=== PATIENT | male | born 1945 | race Caucasian/White ===

== ENCOUNTER → 2017-09-12 | Outpatient (CLI) | payer MEDICARE, OTHER ==
--- NOTE | 2017-09-12 11:37 | US ---
EXAMINATION TYPE: US scrotum with doppler. Grayscale and color Doppler Duplex imaging performed of yuko sifuentes scrotum. DATE OF EXAM: 09/12/2017 COMPARISON: NONE CLINICAL HISTORY: N50.819 Testicular pain. On going testicular pain x 6 months EXAM MEASUREMENTS: TESTICLES: Right Testicle: 3.2 x 1.9 x 2.6 cm Left Testicle: 2.9 x 1.6 x 1.9 cm EPIDIDYMIS HEAD: Right Epididymis: 1.1 x 0.8 x 1.7 cm Left Epididymis: 1.1 x 0.9 x 1.7 cm Doppler performed to assess for testicular vascularity; good bilateral arterial flow is seen. Unable to obtain bilateral venous flow. Presence of hydroceles: no Presence of varicoceles: no Bilateral epididymal cysts with largest on right = 0.8cm and largest on left = 0.9cm A slightly lobulated 8 mm thin-walled cyst in right epididymis is identified. There is oval 9 mm simp le appearing thin-walled cyst in the left epididymis identified. Both testicles are heterogeneous. Co mparison view shows symmetric blood flow bilaterally. No concerning scrotal fluid collections are pre sent. IMPRESSION: No suspicious increased or diminished blood flow to either testicle identified.
== END | disposition home or self-care (01) ==
LOC: RADUSWWP 10:35
PROVIDERS: ATTEND Internal Medicine
DX: N50.819 Testicular pain, unspecified (principal)
CPT/HCPCS: 76870; 93975

== ENCOUNTER 2017-10-11 16:30 | Inpatient (IN) | payer MEDICARE, OTHER ==
[2017-10-11] MEDS ORDERED: SODIUM CHLORIDE 0.9% 1,000 ML IV STA (17:43)
[2017-10-11] MEDS ORDERED: IPRATROPIUM-ALBUTEROL 3 ML NEB INHALATION STA (17:43)
--- NOTE | 2017-10-11 17:49 | ED ---
General Adult HPI - General Chief complaint: Dizziness Stated complaint: Lightheaded/sob Time Seen by Provider: 10/11/17 17:26 Source: patient, family, RN notes reviewed Mode of arrival: wheelchair Limitations: no limitations - History of Present Illness Initial comments: Patient is a pleasant 72-year-old male presenting to the emergency department with complaints of lightheadedness and dyspnea. Patient states these are chronic complaints over the past several months. Patient states symptoms seem to be getting worse and he is not functioning well at home. Patient states symptoms greatly worsen with upright position and exertion. Patient states at times he is only able to walk a few feet. No chest pain. Patient is a former smoker however has difficulty time stating how much. Patient has been seen by primary care physician as well as specialist for this. Patient does have some leg swelling however this is chronic. Patient is having some mild discomfort behind his left leg. - Related Data Home Medications Medication Instructions Recorded Confirmed ALPRAZolam [ALPRAZolam XR] 0.5 mg PO BID 12/08/14 10/11/17 Ammonium Lactate Cream [Ammonium 1 applic TOPICAL BID 12/08/14 10/11/17 Lactate] Aspirin 81 mg PO DAILY 12/08/14 10/11/17 Atorvastatin [Lipitor] 20 mg PO HS 12/08/14 10/11/17 Calcium Carbonate/Vitamin D3 1 tab PO DAILY 12/08/14 10/11/17 [Calcium 600 + Vit D Tablet] Digoxin [Lanoxin] 125 mcg PO DAILY 12/08/14 10/11/17 EPINEPHrine (Auto Inject) [Epipen] 0.3 mg IM ONCE PRN 12/08/14 10/11/17 Finacea 1 applicate TOPICAL DAILY 12/08/14 10/11/17 Flecainide Acetate [Tambocor] 100 mg PO Q12HR 12/08/14 10/11/17 Fluocinonide 30 gm TOPICAL DAILY 12/08/14 10/11/17 Ibuprofen [Motrin] 600 mg PO Q8HR PRN 12/08/14 10/11/17 Lisinopril [Prinivil] 10 mg PO HS 12/08/14 10/11/17 Metoprolol Tartrate [Lopressor] 50 mg PO BID 12/08/14 10/11/17 Multivitamins, Thera [Theragran] 1 each PO DAILY@1200 12/08/14 10/11/17 Rivaroxaban [Xarelto] 20 mg PO HS 12/08/14 10/11/17 cycloSPORINE [Restasis] 1 applicator BOTH EYES BID 12/08/14 10/11/17 metFORMIN HCL 1,000 mg PO DAILY 12/08/14 10/11/17 Furosemide [Lasix] 20 mg PO DAILY 10/11/17 10/11/17 Ketoconazole 2% Shampoo [Nizoral] 1 applic TOPICAL DAILY 10/11/17 10/11/17 Allergies Allergy/AdvReac Type Severity Reaction Status Date / Time venom-honey bee Allergy Anaphylaxis Verified 10/11/17 17:49 [bee venom (honey bee)] Review of Systems ROS Statement: Those systems with pertinent positive or pertinent negative responses have been documented in the HPI. ROS Other: All systems not noted in ROS Statement are negative. Constitutional: Denies: fever Eyes: Denies: eye pain ENT: Denies: ear pain Respiratory: Reports: dyspnea. Denies: cough Cardiovascular: Denies: chest pain Endocrine: Reports: fatigue Gastrointestinal: Denies: vomiting Genitourinary: Denies: dysuria Musculoskeletal: Reports: back pain (Chronic and unchanged) Skin: Denies: rash Neurological: Denies: headache Psychiatric: Denies: anxiety Past Medical History Past Medical History: Atrial Fibrillation, Diabetes Mellitus, Hypertension Additional Past Medical History / Comment(s): hemorrhoids,polyps,rosacea- rhinophyna, dermatitis,prosthesis lt eye History of Any Multi-Drug Resistant Organisms: None Reported Past Surgical History: Orthopedic Surgery, Pacemaker Additional Past Surgical History / Comment(s): lt eye surgery , L knee Past Anesthesia/Blood Transfusion Reactions: No Reported Reaction Type of Cardiac Device: Permanent Pacemaker Device Placement Date:: Dec Past Psychological History: Anxiety Smoking Status: Former smoker Past Alcohol Use History: None Reported Past Drug Use History: None Reported - Past Family History Brother(s) Family Medical History: AFIB, Cancer, Diabetes Mellitus, Myocardial Infarction ( [place]) Additional Family Medical History / Comment(s): esophageal ca, liver ca, prostate ca,sleep apnea Father Family Medical History: CVA/TIA Additional Family Medical History / Comment(s): at age 88 Mother Family Medical History: Cancer Additional Family Medical History / Comment(s): lung at age 73 Sister(s) Family Medical History: Cancer, Diabetes Mellitus Additional Family Medical History / Comment(s): breast General Exam Limitations: no limitations General appearance: alert, in no apparent distress Head exam: Present: atraumatic Eye exam: Present: other (Prosthetic left eye) ENT exam: Present: normal oropharynx Neck exam: Present: normal inspection Respiratory exam: Present: normal lung sounds bilaterally Cardiovascular Exam: Present: regular rate, normal rhythm GI/Abdominal exam: Present: soft. Absent: tenderness Extremities exam: Present: pedal edema. Absent: calf tenderness Neurological exam: Present: alert. Absent: motor sensory deficit Psychiatric exam: Present: normal affect, normal mood Skin exam: Present: normal color Course Vital Signs 10/11/17 10/11/17 10/11/17 16:36 17:43 18:11 Temperature 97.9 F Pulse Rate 59 L 85 56 L Respiratory 16 16 Rate Blood Pressure 92/64 102/50 O2 Sat by Pulse 100 98 Oximetry 10/11/17 10/11/17 18:21 19:37 Temperature 97.3 F L Pulse Rate 60 67 Respiratory 16 Rate Blood Pressure 90/42 O2 Sat by Pulse 95 Oximetry EKG Findings - EKG Comments: EKG Findings:: Undetermined rhythm at 57. Suspected sinus rhythm. QRS 140. QT 410. QTc 399. Normal axis. Nonspecific intraventricular block. No acute ST change. Medical Decision Making - Medical Decision Making Patient reevaluated and updated. Patient given blood transfusion secondary to symptomatic anemia. Case was discussed in detail with practitioner Dipti, who will admit for Dr. Chacko, covering for Dr. Paredes. GI will be consult. - Lab Data Result diagrams: 10/11/17 17:05 10/11/17 17:05 Lab Results 10/11/17 10/11/17 10/11/17 Range/Units 17:05 17:05 17:05 WBC 6.4 (3.8-10.6) k/uL RBC 1.70 L (4.30-5.90) m/uL Hgb 5.4 L* (13.0-17.5) gm/dL Hct 17.4 L* (39.0-53.0) % MCV 102.4 H (80.0-100.0) fL MCH 31.8 (25.0-35.0) pg MCHC 31.0 (31.0-37.0) g/dL RDW 18.1 H (11.5-15.5) % Plt Count 295 (150-450) k/uL Neutrophils % 74 % Lymphocytes % 15 % Monocytes % 7 % Eosinophils % 2 % Basophils % 1 % Neutrophils # 4.7 (1.3-7.7) k/uL Lymphocytes # 0.9 L (1.0-4.8) k/uL Monocytes # 0.5 (0-1.0) k/uL Eosinophils # 0.1 (0-0.7) k/uL Basophils # 0.0 (0-0.2) k/uL Polychromasia Present Hypochromasia Moderate Poikilocytosis Slight Basophilic Stippling Present Anisocytosis Slight Macrocytosis Moderate PT (9.0-12.0) sec INR (<1.2) APTT (22.0-30.0) sec D-Dimer (<0.60) mg/L FEU Sodium 140 (137-145) mmol/L Potassium 5.2 H (3.5-5.1) mmol/L Chloride 107 (98-107) mmol/L Carbon Dioxide 18 L (22-30) mmol/L Anion Gap 15 mmol/L BUN 57 H (9-20) mg/dL Creatinine 1.60 H (0.66-1.25) mg/dL Est GFR (CKD-EPI)AfAm 49 (>60 ml/min/1.73 sqM) Est GFR (CKD-EPI)NonAf 43 (>60 ml/min/1.73 sqM) Glucose 112 H (74-99) mg/dL Calcium 9.0 (8.4-10.2) mg/dL Magnesium 2.0 (1.6-2.3) mg/dL Total Bilirubin 0.2 (0.2-1.3) mg/dL AST 26 (17-59) U/L ALT 39 (21-72) U/L Alkaline Phosphatase 38 (38-126) U/L Total Creatine Kinase 84 (55-170) U/L CK-MB (CK-2) 1.0 (0.0-2.4) ng/mL CK-MB (CK-2) Rel Index 1.2 Troponin I <0.012 (0.000-0.034) ng/mL NT-Pro-B Natriuret Pep pg/mL Total Protein 5.7 L (6.3-8.2) g/dL Albumin 3.6 (3.5-5.0) g/dL Stool Occult Blood (Negative) Blood Type Blood Type Confirm Blood Type Recheck Antibody Screen Crossmatch Spec Expiration Date 10/11/17 10/11/17 10/11/17 Range/Units 17:05 17:05 18:41 WBC (3.8-10.6) k/uL RBC (4.30-5.90) m/uL Hgb (13.0-17.5) gm/dL Hct (39.0-53.0) % MCV (80.0-100.0) fL MCH (25.0-35.0) pg MCHC (31.0-37.0) g/dL RDW (11.5-15.5) % Plt Count (150-450) k/uL Neutrophils % % Lymphocytes % % Monocytes % % Eosinophils % % Basophils % % Neutrophils # (1.3-7.7) k/uL Lymphocytes # (1.0-4.8) k/uL Monocytes # (0-1.0) k/uL Eosinophils # (0-0.7) k/uL Basophils # (0-0.2) k/uL Polychromasia Hypochromasia Poikilocytosis Basophilic Stippling Anisocytosis Macrocytosis PT 12.2 H (9.0-12.0) sec INR 1.3 H (<1.2) APTT 22.2 (22.0-30.0) sec D-Dimer <0.17 (<0.60) mg/L FEU Sodium (137-145) mmol/L Potassium (3.5-5.1) mmol/L Chloride (98-107) mmol/L Carbon Dioxide (22-30) mmol/L Anion Gap mmol/L BUN (9-20) mg/dL Creatinine (0.66-1.25) mg/dL Est GFR (CKD-EPI)AfAm (>60 ml/min/1.73 sqM) Est GFR (CKD-EPI)NonAf (>60 ml/min/1.73 sqM) Glucose (74-99) mg/dL Calcium (8.4-10.2) mg/dL Magnesium (1.6-2.3) mg/dL Total Bilirubin (0.2-1.3) mg/dL AST (17-59) U/L ALT (21-72) U/L Alkaline Phosphatase (38-126) U/L Total Creatine Kinase (55-170) U/L CK-MB (CK-2) (0.0-2.4) ng/mL CK-MB (CK-2) Rel Index Troponin I (0.000-0.034) ng/mL NT-Pro-B Natriuret Pep 271 pg/mL Total Protein (6.3-8.2) g/dL Albumin (3.5-5.0) g/dL Stool Occult Blood (Negative) Blood Type A Positive Blood Type Confirm Blood Type Recheck CABO Indicated Antibody Screen NEGATIVE Crossmatch See Detail Spec Expiration Date 10/14/2017 - 234010/11/17 10/11/17 Range/Units 18:52 18:53 WBC (3.8-10.6) k/uL RBC (4.30-5.90) m/uL Hgb (13.0-17.5) gm/dL Hct (39.0-53.0) % MCV (80.0-100.0) fL MCH (25.0-35.0) pg MCHC (31.0-37.0) g/dL RDW (11.5-15.5) % Plt Count (150-450) k/uL Neutrophils % % Lymphocytes % % Monocytes % % Eosinophils % % Basophils % % Neutrophils # (1.3-7.7) k/uL Lymphocytes # (1.0-4.8) k/uL Monocytes # (0-1.0) k/uL Eosinophils # (0-0.7) k/uL Basophils # (0-0.2) k/uL Polychromasia Hypochromasia Poikilocytosis Basophilic Stippling Anisocytosis Macrocytosis PT (9.0-12.0) sec INR (<1.2) APTT (22.0-30.0) sec D-Dimer (<0.60) mg/L FEU Sodium (137-145) mmol/L Potassium (3.5-5.1) mmol/L Chloride (98-107) mmol/L Carbon Dioxide (22-30) mmol/L Anion Gap mmol/L BUN (9-20) mg/dL Creatinine (0.66-1.25) mg/dL Est GFR (CKD-EPI)AfAm (>60 ml/min/1.73 sqM) Est GFR (CKD-EPI)NonAf (>60 ml/min/1.73 sqM) Glucose (74-99) mg/dL Calcium (8.4-10.2) mg/dL Magnesium (1.6-2.3) mg/dL Total Bilirubin (0.2-1.3) mg/dL AST (17-59) U/L ALT (21-72) U/L Alkaline Phosphatase (38-126) U/L Total Creatine Kinase (55-170) U/L CK-MB (CK-2) (0.0-2.4) ng/mL CK-MB (CK-2) Rel Index Troponin I (0.000-0.034) ng/mL NT-Pro-B Natriuret Pep pg/mL Total Protein (6.3-8.2) g/dL Albumin (3.5-5.0) g/dL Stool Occult Blood Positive (Negative) Blood Type Blood Type Confirm A Positive Blood Type Recheck Antibody Screen Crossmatch Spec Expiration Date - Radiology Data Radiology results: report reviewed (Ultrasound left leg negative for DVT.), image reviewed (Chest x-ray shows no acute process.) Critical Care Time Critical Care Time: Yes Total Critical Care Time: 33 Disposition Clinical Impression: GI hemorrhage Disposition: ADMITTED IP TO THIS [facility] Condition: Serious Referrals: Nicole Paredes MD [Primary Care Provider] - 1-2 days Decision Time: 19:48
[2017-10-11 18:08] LABS: Anisocytosis Slight; Basophils % (A) 1 %; Eosinophils # (A) 0.1 k/uL (0-0.7); Eosinophils % (A) 2 %; Hypochromasia Moderate; Lymphocytes # (A) 0.9 k/uL (1.0-4.8); Lymphocytes % (A) 15 %; MCH 31.8 pg (25.0-35.0); MCV 102.4 fL (80.0-100.0); Macrocytosis Moderate; Mean Platelet Volume 6.7; Monocytes # (A) 0.5 k/uL (0-1.0); Monocytes % (A) 7 %; Neutrophils # (A) 4.7 k/uL (1.3-7.7); Neutrophils % (A) 74 %; Platelet Count 295 k/uL (150-450); Poikilocytosis Slight; RDW 18.1 % (11.5-15.5); WBC 6.4 k/uL (3.8-10.6)
[2017-10-11 18:10] LABS: HCT 17.4 % (39.0-53.0); HGB 5.4 gm/dL (13.0-17.5)
[2017-10-11 18:13] LABS: Albumin 3.6 g/dL (3.5-5.0); Potassium 5.2 mmol/L (3.5-5.1); Total Bilirubin 0.2 mg/dL (0.2-1.3); Total Protein 5.7 g/dL (6.3-8.2)
[2017-10-11 18:17] LABS: D-Dimer <0.17 mg/L FEU (<0.60); INR 1.3 (<1.2); Partial Thromboplastin Time 22.2 sec (22.0-30.0); Prothrombin Time 12.2 sec (9.0-12.0)
[2017-10-11 18:24] LABS: Creatine Kinase 84 U/L (55-170)
[2017-10-11 18:33] LABS: Basophilic Stippling Present; Polychromasia Present
[2017-10-11 18:36] LABS: Troponin I <0.012 ng/mL (0.000-0.034)
--- NOTE | 2017-10-11 18:41 | XR ---
EXAMINATION TYPE: XR chest 2V DATE OF EXAM: 10/11/2017 COMPARISON: 01/06/12 HISTORY: Shortness of breath TECHNIQUE: Frontal and lateral views of the chest are obtained. FINDINGS: Scattered senescent parenchymal changes noted. Hyperinflation compatible with COPD. No evidence for infiltrate. No evidence for atelectasis. Heart size is stable. Mediastinal structures are stable and grossly unremarkable. No evidence for hilar prominence. Degenerative changes dorsal spine. IMPRESSION: 1. No evidence for acute pulmonary disease.
--- NOTE | 2017-10-11 19:13 | US ---
EXAMINATION TYPE: US venous doppler duplex LE LT DATE OF EXAM: 10/11/2017 5:45 PM COMPARISON: NONE CLINICAL HISTORY: Pain. Left leg pain, difficulty walking, patient on blood thinners SIDE PERFORMED: Left TECHNIQUE: The lower extremity deep venous system is examined utilizing real time linear array sonog rey with graded compression, doppler sonography and color-flow sonography. VESSELS IMAGED: External Iliac Vein (EIV) Common Femoral Vein Deep Femoral Vein Greater Saphenous Vein * Femoral Vein Popliteal Vein Small Saphenous Vein * Proximal Calf Veins (* superficial vessels) Difficult study due to patient body habitus Grayscale, color doppler, spectral doppler imaging performed of the deep veins of the lower extremity . There is normal flow, compressibility, vascular waveforms. Left Leg: Appears negative for DVT IMPRESSION: No evidence for left lower extremity DVT at this time.
[2017-10-11] MEDS ORDERED: NALOXONE 0.4 MG/ML 1 ML VIAL IV PRN (19:48)
[2017-10-11] MEDS ORDERED: EPINEPHrine (PF) 1 MG/ML AMP IM PRN (21:03)
[2017-10-11 21:13] VITALS: BMI 47.9
[2017-10-11 21:28] LABS: Glucose,Whole Blood 105 mg/dL (75-99)
[2017-10-11] MEDS: METOPROLOL TARTRATE 50 MG TAB PO SCH (21:57)
[2017-10-11] MEDS: PANTOPRAZOLE 40 MG/10 ML VIAL IV SCH (22:38)
[2017-10-11] MEDS: SODIUM CHLORIDE 0.9% 1,000 ML IV SCH (23:12)
[2017-10-12 02:08] LABS: Anisocytosis Moderate; Basophils % (A) 1 %; Eosinophils # (A) 0.1 k/uL (0-0.7); Eosinophils % (A) 2 %; HCT 21.2 % (39.0-53.0); Hypochromasia Moderate; Lymphocytes # (A) 0.8 k/uL (1.0-4.8); Lymphocytes % (A) 14 %; MCH 29.4 pg (25.0-35.0); MCHC 30.7 g/dL (31.0-37.0); Macrocytosis Slight; Mean Platelet Volume 6.4; Monocytes # (A) 0.3 k/uL (0-1.0); Monocytes % (A) 6 %; Neutrophils # (A) 4.6 k/uL (1.3-7.7); Neutrophils % (A) 77 %; Platelet Count 236 k/uL (150-450); Poikilocytosis Slight; RBC 2.22 m/uL (4.30-5.90); RDW 22.8 % (11.5-15.5)
[2017-10-12 02:13] LABS: HGB 6.5 gm/dL (13.0-17.5)
[2017-10-12 02:14] LABS: MCV 95.7 fL (80.0-100.0)
[2017-10-12] MEDS: SODIUM CHLORIDE 0.9% 1,000 ML IV SCH ×3 (02:35→18:01)
[2017-10-12 04:33] LABS: Appearance,Urine Clear (Clear); Bilirubin,Urine Negative (Negative); Blood,Urine Negative (Negative); Color,Urine Light Yellow; Glucose,Urine (UA) Negative (Negative); Ketones,Urine Negative (Negative); Leukocyte Esterase,Urine Negative (Negative); Nitrite,Urine Negative (Negative); PH, Urine 5.5 (5.0-8.0); Protein,Urine Negative (Negative); Specific Gravity,Urine 1.014 (1.001-1.035); Urobilinogen,Urine <2.0 mg/dL (<2.0)
[2017-10-12 06:07] LABS: Glucose,Whole Blood 113 mg/dL (75-99)
[2017-10-12] MEDS: INSULIN ASPART 100 UNIT/ML 1 ML 10 ML VIAL SQ SCH ×3 (06:07→17:24)
[2017-10-12 06:34] LABS: Calcium 8.6 mg/dL (8.4-10.2); Potassium 5.6 mmol/L (3.5-5.1)
[2017-10-12 06:35] LABS: Anisocytosis Moderate; Basophils % (A) 1 %; Eosinophils # (A) 0.1 k/uL (0-0.7); Eosinophils % (A) 2 %; Hypochromasia Moderate; Lymphocytes % (A) 17 %; MCH 29.5 pg (25.0-35.0); MCHC 31.5 g/dL (31.0-37.0); MCV 93.5 fL (80.0-100.0); Macrocytosis Slight; Mean Platelet Volume 6.4; Monocytes # (A) 0.4 k/uL (0-1.0); Monocytes % (A) 7 %; Neutrophils # (A) 4.2 k/uL (1.3-7.7); Neutrophils % (A) 73 %; Platelet Count 231 k/uL (150-450); Poikilocytosis Moderate; RBC 2.12 m/uL (4.30-5.90); WBC 5.7 k/uL (3.8-10.6)
[2017-10-12 06:38] LABS: HCT 19.8 % (39.0-53.0); HGB 6.2 gm/dL (13.0-17.5)
[2017-10-12] MEDS: KETOCONAZOLE 2% SHAMPOO 1 APPLIC/ML TOPICAL SCH (08:33)
[2017-10-12] MEDS: cycloSPORINE 0.05% OPHTH 0.4 ML DROPERETTE BOTH EYES SCH ×2 (08:43→22:25)
[2017-10-12] MEDS: AMMONIUM LACTATE 12% CREAM 140 GM TUBE TOPICAL SCH ×2 (08:43→22:24)
[2017-10-12] MEDS: BETAMETHASONE DIPROPIONATE 0.05% CREAM 15 GM TUBE TOPICAL SCH (08:44)
[2017-10-12] MEDS ORDERED: SODIUM POLYSTYRENE SULFONATE 15 GM/60 ML BOTTLE PO STA (09:01)
--- NOTE | 2017-10-12 09:58 | P.CONS ---
History of Present Illness - Reason for Consult Consult date: 10/12/17 GI bleeding Requesting physician: Marc Stone - History of Present Illness 72-year-old male history of anemia, A. fib maintained on XARELTO, diabetes, hypertension, admitted with lightheadedness shortness of breath especially with exertion for several months as well as left lower leg pain. Lower extremity venous Doppler negative for DVT. Consult requested for GI bleed. Last dose of XARELTO 10/11/17. Denies overt bleeding hematemesis hematochezia melena. Denies abdominal pain. No weight loss. No excessive usage of aspirin or NSAIDs. No alcohol. Admission hemoglobin 5.4 presently 6.2. MCV 93-102. Platelet 231. INR 1.3. BUN 57. Creatinine 1.6. Stool occult blood positive. He has received 2 units of blood and scheduled received 2 more. EGD colonoscopy November 2014 for evaluation of epigastric pain change in bowel habits and intermittent lower abdominal pain mild iron deficiency anemia; EGD findings mild gastritis LA grade B reflux esophagitis. Colonoscopy 1 cm cecal polypectomy and 2 cm flat polyp with central depression in the ascending colon just proximal to the ileocecal valve status post submucosal injection partial piecemeal snare polypectomy and hot biopsy. Ascending colon polypectomy 4. Colon biopsies fragments of adenoma. Review of Systems Constitutional: Denies fever, chills, sweats, weight gain, or loss. HEENT: Negative for migraines, blurred vision or loss, earaches, drainage, tinnitus, oral mucosal lesions, dysphagia, or odynophagia. Cardiac: Negative for chest pain, arrhythmias, or palpitation. Respiratory: Admitted with shortness of breath, denies hemoptysis, cough, or sputum production. Gastrointestinal: See HPI for pertinent findings. Genitourinary: Negative for hematuria, urgency, frequency, polyuria, dysuria, or penile discharge. Musculoskeletal: Negative for muscle aches, swelling, arthritis, and arthralgias. Neurologic: Negative for stroke or TIA. Endocrine: Negative for thyroid problems. Skin: Negative for rash or itching. Psychiatric: Negative history for depression and anxiety Past Medical History Past Medical History: Atrial Fibrillation, Diabetes Mellitus, Hypertension Additional Past Medical History / Comment(s): hemorrhoids,polyps,rosacea- rhinophyna, dermatitis,prosthesis lt eye History of Any Multi-Drug Resistant Organisms: None Reported Past Surgical History: Orthopedic Surgery, Pacemaker Additional Past Surgical History / Comment(s): lt eye surgery , L knee Past Anesthesia/Blood Transfusion Reactions: No Reported Reaction Type of Cardiac Device: Permanent Pacemaker Device Placement Date:: Dec Past Psychological History: Anxiety Smoking Status: Former smoker Past Alcohol Use History: None Reported Additional Past Alcohol Use History / Comment(s): quit smoking 2007,on and off since age 23 Past Drug Use History: None Reported - Past Family History Brother(s) Family Medical History: AFIB, Cancer, Diabetes Mellitus, Myocardial Infarction ( [place]) Additional Family Medical History / Comment(s): esophageal ca, liver ca, prostate ca,sleep apnea Father Family Medical History: CVA/TIA Additional Family Medical History / Comment(s): at age 88 Mother Family Medical History: Cancer Additional Family Medical History / Comment(s): lung at age 73 Sister(s) Family Medical History: Cancer, Diabetes Mellitus Additional Family Medical History / Comment(s): breast Medications and Allergies Home Medications Medication Instructions Recorded Confirmed Type ALPRAZolam [ALPRAZolam XR] 0.5 mg PO BID 12/08/14 10/11/17 History Ammonium Lactate Cream [Ammonium 1 applic TOPICAL BID 12/08/14 10/11/17 History Lactate] Aspirin 81 mg PO DAILY 12/08/14 10/11/17 History Atorvastatin [Lipitor] 20 mg PO HS 12/08/14 10/11/17 History Calcium Carbonate/Vitamin D3 1 tab PO DAILY 12/08/14 10/11/17 History [Calcium 600 + Vit D Tablet] Digoxin [Lanoxin] 125 mcg PO DAILY 12/08/14 10/11/17 History EPINEPHrine (Auto Inject) [Epipen] 0.3 mg IM ONCE PRN 12/08/14 10/11/17 History Finacea 1 applicate TOPICAL DAILY 12/08/14 10/11/17 History Flecainide Acetate [Tambocor] 100 mg PO Q12HR 12/08/14 10/11/17 History Fluocinonide 30 gm TOPICAL DAILY 12/08/14 10/11/17 History Ibuprofen [Motrin] 600 mg PO Q8HR PRN 12/08/14 10/11/17 History Lisinopril [Prinivil] 10 mg PO HS 12/08/14 10/11/17 History Metoprolol Tartrate [Lopressor] 50 mg PO BID 12/08/14 10/11/17 History Multivitamins, Thera [Theragran] 1 each PO DAILY@1200 12/08/14 10/11/17 History Rivaroxaban [Xarelto] 20 mg PO HS 12/08/14 10/11/17 History cycloSPORINE [Restasis] 1 applicator BOTH EYES BID 12/08/14 10/11/17 History metFORMIN HCL 1,000 mg PO DAILY 12/08/14 10/11/17 History Furosemide [Lasix] 20 mg PO DAILY 10/11/17 10/11/17 History Ketoconazole 2% Shampoo [Nizoral] 1 applic TOPICAL DAILY 10/11/17 10/11/17 History Allergies Allergy/AdvReac Type Severity Reaction Status Date / Time venom-honey bee Allergy Anaphylaxis Verified 10/11/17 17:49 [bee venom (honey bee)] Physical Exam Vitals: Vital Signs Temp Pulse Pulse Resp BP BP Pulse Ox 10/12/17 04:00 97.4 F L 70 16 95/62 100 10/12/17 03:21 63 16 10/12/17 00:45 97.5 F L 65 18 111/67 100 10/11/17 23:52 82 18 10/11/17 23:50 97.2 F L 82 18 110/49 100 10/11/17 23:11 97.2 F L 82 18 110/49 100 10/11/17 22:41 97.2 F L 64 18 112/54 100 10/11/17 22:31 97.4 F L 65 18 98/59 100 10/11/17 22:12 97.6 F 66 18 103/37 100 10/11/17 20:17 97.6 F 18 111/52 10/11/17 20:09 97.6 F 68 18 111/52 100 10/11/17 19:39 97.8 F 67 16 90/42 94 L 10/11/17 19:37 97.3 F L 67 16 90/42 95 10/11/17 18:21 60 10/11/17 18:11 56 L 10/11/17 17:43 85 16 102/50 98 10/11/17 16:36 97.9 F 59 L 16 92/64 100 Intake and Output 10/11/17 10/12/17 10/12/17 22:59 06:59 14:59 Intake Total 660 950 Output Total 300 Balance 660 650 Intake: Intake, IV Titration 640 Amount Sodium Chloride 0.9% 1, 640 000 ml @ 160 mls/hr IV . Q6H15M [facility] Rx#:[id number] Tube Feeding 40 Blood Product 620 310 Rc As-1 Unit 310 [id number] Rc As-1 Unit 0 310 [id number] Output: Urine 300 Other: Voiding Method Urinal # Voids 1 Weight 142.882 kg 144.8 kg General appearance: The patient is alert, oriented, in no acute distress. HET: Head is normocephalic and atraumatic. Pupils are equal and reactive. Oropharynx is clear without lesions. Neck: Supple without lymphadenopathy. Trachea midline. Heart: S1 S2. Regular rate and rhythm. Lungs: No crackles or wheezes are heard. Abdomen: Soft, nontender, nondistended with bowel sounds. No peritoneal signs. No palpable organomegaly or masses. Extremities: Normal skin color and turgor. No cyanosis, rash, ulceration, clubbing, or edema. Radial and pedal pulses are 2/4 bilaterally. Neurological: No focal deficits. Strength and sensation are grossly intact. Results CBC & Chem 7: 10/12/17 05:26 10/12/17 05:26 Labs: Abnormal Lab Results - Last 24 Hours (Table) 10/11/17 10/11/17 10/11/17 Range/Units 17:05 17:05 17:05 RBC 1.70 L (4.30-5.90) m/uL Hgb 5.4 L* (13.0-17.5) gm/dL Hct 17.4 L* (39.0-53.0) % MCV 102.4 H (80.0-100.0) fL MCHC (31.0-37.0) g/dL RDW 18.1 H (11.5-15.5) % Lymphocytes # 0.9 L (1.0-4.8) k/uL PT 12.2 H (9.0-12.0) sec INR 1.3 H (<1.2) Potassium 5.2 H (3.5-5.1) mmol/L Chloride (98-107) mmol/L Carbon Dioxide 18 L (22-30) mmol/L BUN 57 H (9-20) mg/dL Creatinine 1.60 H (0.66-1.25) mg/dL Glucose 112 H (74-99) mg/dL POC Glucose (mg/dL) (75-99) mg/dL Total Protein 5.7 L (6.3-8.2) g/dL Crossmatch 10/11/17 10/11/17 10/12/17 Range/Units 18:41 21:27 01:26 RBC 2.22 L (4.30-5.90) m/uL Hgb 6.5 L* (13.0-17.5) gm/dL Hct 21.2 L (39.0-53.0) % MCV (80.0-100.0) fL MCHC 30.7 L (31.0-37.0) g/dL RDW 22.8 H (11.5-15.5) % Lymphocytes # 0.8 L (1.0-4.8) k/uL PT (9.0-12.0) sec INR (<1.2) Potassium (3.5-5.1) mmol/L Chloride (98-107) mmol/L Carbon Dioxide (22-30) mmol/L BUN (9-20) mg/dL Creatinine (0.66-1.25) mg/dL Glucose (74-99) mg/dL POC Glucose (mg/dL) 105 H (75-99) mg/dL Total Protein (6.3-8.2) g/dL Crossmatch See Detail 10/12/17 10/12/17 10/12/17 Range/Units 05:26 05:26 06:05 RBC 2.12 L (4.30-5.90) m/uL Hgb 6.2 L* (13.0-17.5) gm/dL Hct 19.8 L* (39.0-53.0) % MCV (80.0-100.0) fL MCHC (31.0-37.0) g/dL RDW 23.0 H (11.5-15.5) % Lymphocytes # (1.0-4.8) k/uL PT (9.0-12.0) sec INR (<1.2) Potassium 5.6 H (3.5-5.1) mmol/L Chloride 109 H (98-107) mmol/L Carbon Dioxide 21 L (22-30) mmol/L BUN 52 H (9-20) mg/dL Creatinine (0.66-1.25) mg/dL Glucose 102 H (74-99) mg/dL POC Glucose (mg/dL) 113 H (75-99) mg/dL Total Protein (6.3-8.2) g/dL Crossmatch Assessment and Plan (1) GI bleed Narrative/Plan: Etiology unclear possible upper possible lower source possible small bowel angiectasia exacerbated by anticoagulation. Current Visit: Yes Status: Acute Code(s): K92.2 - GASTROINTESTINAL HEMORRHAGE, UNSPECIFIED SNOMED Code(s): 59642451 (2) Symptomatic anemia Current Visit: Yes Status: Acute Code(s): D64.9 - ANEMIA, UNSPECIFIED SNOMED Code(s): 971315661 (3) Acute blood loss anemia Current Visit: Yes Status: Acute Code(s): D62 - ACUTE POSTHEMORRHAGIC ANEMIA SNOMED Code(s): 892882686 (4) Atrial fibrillation Current Visit: Yes Status: Acute Code(s): I48.91 - UNSPECIFIED ATRIAL FIBRILLATION SNOMED Code(s): 61485830 Plan: 1. Protonix 40 mg IV daily. Hold anticoagulation. Clear liquid starting at dinner through breakfast tomorrow been nothing by mouth except medications. 2. CBC monitoring. 3. EGD colonoscopy tomorrow afternoon possible small bowel capsule endoscopy. Thank you for this kind referral and the opportunity to participate in the care of your patient. This consultation was discussed with Dr. Szymanski. The impression and plan of care have been directed as dictated.
--- NOTE | 2017-10-12 10:09 | P.HPIM ---
History of Present Illness Patient is a pleasant 70-year-old male came in with compensative generalized fatigue shortness of breath lightheadedness unable to stand because of the fatigue and found to be severely anemic at the hemoglobin of around 6 received 2 units of transfusion still remained at 6 patient probably L hemoglobin is around 4 receiving 2 more units of blood transfusion patient's symptoms improved after blood transfusion. Patient denied any chest pain and nausea vomiting denied any blood in the stools.stools patient has normally 1 bowel movement brownish bowel movement today. Patient's MCV is normal at 98. Patient does use anti-correlation for his atrial fibrillation. Patient had an EGD and colonoscopy in 2014 which showed a once any weakness cecal polyp. No evidence of acute bleeding at this time Other significant findings her hyperkalemia secondary to lisinopril which was discontinued. Patient also uses aspirin at home. Review of Systems REVIEW OF SYSTEMS: CONSTITUTIONAL: As mentioned in HPI HEENT: No recent visual problems or hearing problems. Denied any sore throat. CARDIOVASCULAR: No chest pain, orthopnea, PND, no palpitations, no syncope. PULMONARY: no cough, no hemoptysis. GASTROINTESTINAL: No diarrhea, no nausea, no vomiting, no abdominal pain. Normoactive bowel sounds. NEUROLOGICAL: No headaches, no weakness, no numbness. HEMATOLOGICAL: Denies any bleeding or petechiae. GENITOURINARY: Denies any burning micturition, frequency, or urgency. MUSCULOSKELETAL/RHEUMATOLOGICAL: Denies any joint pain, swelling, or any muscle pain. ENDOCRINE: Denies any polyuria or polydipsia. The rest of the 14-point review of systems is negative. Past Medical History Past Medical History: Atrial Fibrillation, Diabetes Mellitus, Hypertension Additional Past Medical History / Comment(s): hemorrhoids,polyps,rosacea- rhinophyna, dermatitis,prosthesis lt eye History of Any Multi-Drug Resistant Organisms: None Reported Past Surgical History: Orthopedic Surgery, Pacemaker Additional Past Surgical History / Comment(s): lt eye surgery , L knee Past Anesthesia/Blood Transfusion Reactions: No Reported Reaction Type of Cardiac Device: Permanent Pacemaker Device Placement Date:: Dec Past Psychological History: Anxiety Smoking Status: Former smoker Past Alcohol Use History: None Reported Additional Past Alcohol Use History / Comment(s): quit smoking 2007,on and off since age 23 Past Drug Use History: None Reported - Past Family History Brother(s) Family Medical History: AFIB, Cancer, Diabetes Mellitus, Myocardial Infarction ( [place]) Additional Family Medical History / Comment(s): esophageal ca, liver ca, prostate ca,sleep apnea Father Family Medical History: CVA/TIA Additional Family Medical History / Comment(s): at age 88 Mother Family Medical History: Cancer Additional Family Medical History / Comment(s): lung at age 73 Sister(s) Family Medical History: Cancer, Diabetes Mellitus Additional Family Medical History / Comment(s): breast Medications and Allergies Home Medications Medication Instructions Recorded Confirmed Type ALPRAZolam [ALPRAZolam XR] 0.5 mg PO BID 12/08/14 10/11/17 History Ammonium Lactate Cream [Ammonium 1 applic TOPICAL BID 12/08/14 10/11/17 History Lactate] Aspirin 81 mg PO DAILY 12/08/14 10/11/17 History Atorvastatin [Lipitor] 20 mg PO HS 12/08/14 10/11/17 History Calcium Carbonate/Vitamin D3 1 tab PO DAILY 12/08/14 10/11/17 History [Calcium 600 + Vit D Tablet] Digoxin [Lanoxin] 125 mcg PO DAILY 12/08/14 10/11/17 History EPINEPHrine (Auto Inject) [Epipen] 0.3 mg IM ONCE PRN 12/08/14 10/11/17 History Finacea 1 applicate TOPICAL DAILY 12/08/14 10/11/17 History Flecainide Acetate [Tambocor] 100 mg PO Q12HR 12/08/14 10/11/17 History Fluocinonide 30 gm TOPICAL DAILY 12/08/14 10/11/17 History Ibuprofen [Motrin] 600 mg PO Q8HR PRN 12/08/14 10/11/17 History Lisinopril [Prinivil] 10 mg PO HS 12/08/14 10/11/17 History Metoprolol Tartrate [Lopressor] 50 mg PO BID 12/08/14 10/11/17 History Multivitamins, Thera [Theragran] 1 each PO DAILY@1200 12/08/14 10/11/17 History Rivaroxaban [Xarelto] 20 mg PO HS 12/08/14 10/11/17 History cycloSPORINE [Restasis] 1 applicator BOTH EYES BID 12/08/14 10/11/17 History metFORMIN HCL 1,000 mg PO DAILY 12/08/14 10/11/17 History Furosemide [Lasix] 20 mg PO DAILY 10/11/17 10/11/17 History Ketoconazole 2% Shampoo [Nizoral] 1 applic TOPICAL DAILY 10/11/17 10/11/17 History Allergies Allergy/AdvReac Type Severity Reaction Status Date / Time venom-honey bee Allergy Anaphylaxis Verified 10/11/17 17:49 [bee venom (honey bee)] Physical Exam Vitals: Vital Signs Temp Pulse Pulse Resp BP BP Pulse Ox 10/12/17 09:42 98.6 F 78 18 117/60 10/12/17 09:15 98.4 F 10/12/17 09:12 76 18 98/72 100 10/12/17 09:02 98 F 69 18 99/52 100 10/12/17 08:00 98.3 F 66 16 99/57 99 10/12/17 04:00 97.4 F L 70 16 95/62 100 10/12/17 03:21 63 16 10/12/17 00:45 97.5 F L 65 18 111/67 100 10/11/17 23:52 82 18 10/11/17 23:50 97.2 F L 82 18 110/49 100 10/11/17 23:11 97.2 F L 82 18 110/49 100 10/11/17 22:41 97.2 F L 64 18 112/54 100 10/11/17 22:31 97.4 F L 65 18 98/59 100 10/11/17 22:12 97.6 F 66 18 103/37 100 10/11/17 20:17 97.6 F 18 111/52 10/11/17 20:09 97.6 F 68 18 111/52 100 10/11/17 19:39 97.8 F 67 16 90/42 94 L 10/11/17 19:37 97.3 F L 67 16 90/42 95 10/11/17 18:21 60 10/11/17 18:11 56 L 10/11/17 17:43 85 16 102/50 98 10/11/17 16:36 97.9 F 59 L 16 92/64 100 Intake and Output 10/11/17 10/12/17 10/12/17 22:59 06:59 14:59 Intake Total 660 950 0 Output Total 300 Balance 660 650 0 Intake: Intake, IV Titration 640 Amount Sodium Chloride 0.9% 1, 640 000 ml @ 160 mls/hr IV . Q6H15M [facility] Rx#:[id number] Tube Feeding 40 Blood Product 620 310 0 Rc As-1 Unit 310 [id number] Rc As-1 Unit 0 310 [id number] Rc As-3 Unit 0 [id number] Output: Urine 300 Other: Voiding Method Urinal Urinal # Voids 1 Weight 142.882 kg 144.8 kg PHYSICAL EXAMINATION: GENERAL: The patient is alert and oriented x3, not in any acute distress. Well developed, well nourished. HEENT: Pupils are round and equally reacting to light. EOMI. No scleral icterus. Patient does have conjunctival pallor. Normocephalic, atraumatic. No pharyngeal erythema. No thyromegaly. CARDIOVASCULAR: S1 and S2 present. No murmurs, rubs, or gallops. PULMONARY: Chest is clear to auscultation, no wheezing or crackles. ABDOMEN: Soft, nontender, nondistended, normoactive bowel sounds. No palpable organomegaly. MUSCULOSKELETAL: No joint swelling or deformity. EXTREMITIES: No cyanosis, clubbing, or pedal edema. NEUROLOGICAL: Gross neurological examination did not reveal any focal deficits. SKIN: No rashes. Results CBC & Chem 7: 10/12/17 05:26 10/12/17 05:26 Labs: Abnormal Lab Results - Last 24 Hours (Table) 10/11/17 10/11/17 10/11/17 Range/Units 17:05 17:05 17:05 RBC 1.70 L (4.30-5.90) m/uL Hgb 5.4 L* (13.0-17.5) gm/dL Hct 17.4 L* (39.0-53.0) % MCV 102.4 H (80.0-100.0) fL MCHC (31.0-37.0) g/dL RDW 18.1 H (11.5-15.5) % Lymphocytes # 0.9 L (1.0-4.8) k/uL PT 12.2 H (9.0-12.0) sec INR 1.3 H (<1.2) Potassium 5.2 H (3.5-5.1) mmol/L Chloride (98-107) mmol/L Carbon Dioxide 18 L (22-30) mmol/L BUN 57 H (9-20) mg/dL Creatinine 1.60 H (0.66-1.25) mg/dL Glucose 112 H (74-99) mg/dL POC Glucose (mg/dL) (75-99) mg/dL Total Protein 5.7 L (6.3-8.2) g/dL Crossmatch 10/11/17 10/11/17 10/12/17 Range/Units 18:41 21:27 01:26 RBC 2.22 L (4.30-5.90) m/uL Hgb 6.5 L* (13.0-17.5) gm/dL Hct 21.2 L (39.0-53.0) % MCV (80.0-100.0) fL MCHC 30.7 L (31.0-37.0) g/dL RDW 22.8 H (11.5-15.5) % Lymphocytes # 0.8 L (1.0-4.8) k/uL PT (9.0-12.0) sec INR (<1.2) Potassium (3.5-5.1) mmol/L Chloride (98-107) mmol/L Carbon Dioxide (22-30) mmol/L BUN (9-20) mg/dL Creatinine (0.66-1.25) mg/dL Glucose (74-99) mg/dL POC Glucose (mg/dL) 105 H (75-99) mg/dL Total Protein (6.3-8.2) g/dL Crossmatch See Detail 10/12/17 10/12/17 10/12/17 Range/Units 05:26 05:26 06:05 RBC 2.12 L (4.30-5.90) m/uL Hgb 6.2 L* (13.0-17.5) gm/dL Hct 19.8 L* (39.0-53.0) % MCV (80.0-100.0) fL MCHC (31.0-37.0) g/dL RDW 23.0 H (11.5-15.5) % Lymphocytes # (1.0-4.8) k/uL PT (9.0-12.0) sec INR (<1.2) Potassium 5.6 H (3.5-5.1) mmol/L Chloride 109 H (98-107) mmol/L Carbon Dioxide 21 L (22-30) mmol/L BUN 52 H (9-20) mg/dL Creatinine (0.66-1.25) mg/dL Glucose 102 H (74-99) mg/dL POC Glucose (mg/dL) 113 H (75-99) mg/dL Total Protein (6.3-8.2) g/dL Crossmatch Thrombosis Risk Factor Assmnt - Choose All That Apply Each Risk Factor Represents 2 Points: Age 61-74 years Thrombosis Risk Factor Assessment Total Risk Factor Score: 2 Thrombosis Risk Factor Assessment Level: Low Risk Assessment and Plan Plan: -Symptomatically anemia: My suspicion is low that patient has acute blood loss anemia there is no clinical evidence of acute GI bleed patient may have slow chronic GI bleed are may be a combination anemia. Patient will receive blood transfusion gastroneurology was consulted -Atrial fibrillation: Presently rate controlled patient is on anticoagulation with XARELTO, which will be held. Anemia normocytic patient may have a combination anemia my suspicion is low that patient has acute blood loss discontinued and his anemia I'll obtain a serum ferritin level, B12 folic acid level, LDH and reticulocyte count. -Acute renal failure: Unsure whether patient has chronic kidney disease acute renal failure is secondary to severe anemia and Lasix Lasix will be discontinued lisinopril will be held. Patient will be continued on IV fluids -Hyperkalemia secondary to lisinopril which will be held -Hypotension secondary to severe anemia antidepressive medications will be held. -Type 2 diabetes mellitus
[2017-10-12] MEDS: DIGOXIN 125 MCG TAB PO SCH (10:27)
[2017-10-12] MEDS: METOPROLOL TARTRATE 50 MG TAB PO SCH ×2 (10:27→22:25)
[2017-10-12] MEDS: PANTOPRAZOLE 40 MG/10 ML VIAL IV SCH (10:27)
[2017-10-12] MEDS: FLECAINIDE 50 MG TAB PO SCH ×2 (10:27→22:25)
[2017-10-12 11:28] LABS: Glucose,Whole Blood 153 mg/dL (75-99)
[2017-10-12 13:17] LABS: Reticulocyte % 7.7 % (0.5-2.0)
[2017-10-12 15:31] LABS: Hemoglobin A1C 5.4 % (4.0-6.0)
[2017-10-12] MEDS ORDERED: PEG 3350-NA SULF,BICARB,CL/KCL 4,000 ML BOTTLE PO ONE (16:00)
[2017-10-12 16:50] LABS: Glucose,Whole Blood 178 mg/dL (75-99)
[2017-10-12] MEDS ORDERED: ATORVASTATIN 20 MG TAB PO SCH (21:00)
[2017-10-12 21:11] LABS: Anisocytosis Moderate; Hypochromasia Slight; MCH 28.7 pg (25.0-35.0); MCHC 31.5 g/dL (31.0-37.0); Macrocytosis Slight; Mean Platelet Volume 6.9; Platelet Count 243 k/uL (150-450); Poikilocytosis Slight; RBC 2.97 m/uL (4.30-5.90); RDW 22.6 % (11.5-15.5); WBC 6.1 k/uL (3.8-10.6)
[2017-10-12 21:13] LABS: HGB 8.5 gm/dL (13.0-17.5)
[2017-10-12 21:20] LABS: Glucose,Whole Blood 109 mg/dL (75-99)
[2017-10-13 06:01] LABS: Glucose,Whole Blood 119 mg/dL (75-99)
[2017-10-13 06:25] LABS: Anisocytosis Moderate; HCT 23.6 % (39.0-53.0); HGB 7.4 gm/dL (13.0-17.5); Hypochromasia Slight; MCH 28.8 pg (25.0-35.0); MCHC 31.5 g/dL (31.0-37.0); MCV 91.4 fL (80.0-100.0); Macrocytosis Slight; Mean Platelet Volume 6.7; Platelet Count 218 k/uL (150-450); Poikilocytosis Moderate; RBC 2.58 m/uL (4.30-5.90); RDW 22.4 % (11.5-15.5); WBC 5.2 k/uL (3.8-10.6)
[2017-10-13 06:37] LABS: Anion Gap 9 mmol/L; Blood Urea Nitrogen 22 mg/dL (9-20); Calcium 8.5 mg/dL (8.4-10.2); Carbon Dioxide 23 mmol/L (22-30); Chloride 110 mmol/L (98-107); Glucose 112 mg/dL (74-99); Potassium 4.9 mmol/L (3.5-5.1); Sodium 142 mmol/L (137-145)
[2017-10-13] MEDS: INSULIN ASPART 100 UNIT/ML 1 ML 10 ML VIAL SQ SCH ×4 (06:54→17:42)
[2017-10-13] MEDS: SODIUM CHLORIDE 0.9% 1,000 ML IV SCH ×4 (06:55→12:12)
[2017-10-13] MEDS: BETAMETHASONE DIPROPIONATE 0.05% CREAM 15 GM TUBE TOPICAL SCH (09:01)
[2017-10-13] MEDS: AMMONIUM LACTATE 12% CREAM 140 GM TUBE TOPICAL SCH (09:01)
[2017-10-13] MEDS: DIGOXIN 125 MCG TAB PO SCH (09:02)
[2017-10-13] MEDS: cycloSPORINE 0.05% OPHTH 0.4 ML DROPERETTE BOTH EYES SCH (09:02)
[2017-10-13] MEDS: METOPROLOL TARTRATE 50 MG TAB PO SCH (09:02)
[2017-10-13] MEDS: FLECAINIDE 50 MG TAB PO SCH (09:02)
[2017-10-13] MEDS: KETOCONAZOLE 2% SHAMPOO 1 APPLIC/ML TOPICAL SCH (09:03)
[2017-10-13] MEDS: PANTOPRAZOLE 40 MG/10 ML VIAL IV SCH (09:03)
[2017-10-13 11:05] VITALS: RESP 16
[2017-10-13 11:38] LABS: Glucose,Whole Blood 163 mg/dL (75-99)
[2017-10-13 16:05] VITALS: BP 162/72; PULSE 80; TEMP 98.3
--- NOTE | 2017-10-13 16:09 | P.DS ---
Providers Date of admission: 10/11/17 19:48 Attending physician: Paulo Chacko Consults: 10/11/17 19:48 Consult Physician Urgent Consulting Provider: Ajit Szymanski Consult Reason/Comments: gi hemorrhage Do you want consulting provider notified?: Yes Primary care physician: Nicole Paredes [facility] Course: 70-year-old gentleman came in with severe generalized fatigue and symptomatically anemia improved symptoms after 4 units of blood transfusion. Although there is no clinical evidence of acute GI bleed. Patient may have subacute to chronic GI bleed. Patient is undergoing upper and lower GI endoscopy. Depending on the results patient probably can be discharged today. Recommendations regarding anticoagulation as per gastroenterology. I do not believe patient will need aspirin patient never had any history of coronary artery disease that will be discontinued regarding anti-correlation for atrial fibrillation, awaiting results of upper and lower GI endoscopy and gastroenterology recommendations. Patient doesn't have any heart failure although does have history of diabetes mellitus will benefit from MARGARITA inhibitor because of his hypotension, lightheadedness and acute renal dysfunction I'm holding MARGARITA inhibitor temporally for now. I do not believe patient will require Lasix which will be discontinued as well. Patient is rate controlled presently. Patient's ferritin levels are low at around 15 and B12 level is around 200 patient will be discharged on iron supplementation B12 injection will be provided to the patient. Patient will follow-up with PCP as an outpatient may benefit from IV iron supplementation. MiraLAX for constipation will be prescribed as well. Patient is feeling much better today. PHYSICAL EXAMINATION: GENERAL: The patient is alert and oriented x3, not in any acute distress. Well developed, well nourished. HEENT: Pupils are round and equally reacting to light. EOMI. No scleral icterus. Patient does have conjunctival pallor. Normocephalic, atraumatic. No pharyngeal erythema. No thyromegaly. CARDIOVASCULAR: S1 and S2 present. No murmurs, rubs, or gallops. PULMONARY: Chest is clear to auscultation, no wheezing or crackles. ABDOMEN: Soft, nontender, nondistended, normoactive bowel sounds. No palpable organomegaly. MUSCULOSKELETAL: No joint swelling or deformity. EXTREMITIES: No cyanosis, clubbing, or pedal edema. NEUROLOGICAL: Gross neurological examination did not reveal any focal deficits. SKIN: No rashes. Assessment and Plan Plan: -Symptomatic anemia: My suspicion is low that patient has acute blood loss anemia there is no clinical evidence of acute GI bleed patient may have slow chronic GI bleed and combination iron deficiency and B12 deficiency anemia -Atrial fibrillation: Presently rate controlled patient is on anticoagulation with XARELTO, management of anti-correlation as mentioned above Anemia normocytic patient may have a combination anemia my suspicion is low that patient has acute blood loss discontinued. -Acute renal failure: Improved with IV fluids IV blood transfusion, holding MARGARITA inhibitor and Lasix -Hyperkalemia secondary to lisinopril which will be held -Hypotension secondary to severe anemia antihypertensive medications will be held. -Type 2 diabetes mellitus Patient Condition at Discharge: Serious Plan - Discharge Summary New Discharge Prescriptions: New Omeprazole [P[facility]LOSEC] [facility]. Ferrous Sulfate [Feosol] 325 mg PO BID #60 tab Polyethylene Glycol 3350 [Miralax] 17 gm PO DAILY PRN #15 packet PRN Reason: Constipation Continue cycloSPORINE [Restasis] 1 applicator BOTH EYES BID Metoprolol Tartrate [Lopressor] 50 mg PO BID metFORMIN HCL 1,000 mg PO DAILY Flecainide Acetate [Tambocor] 100 mg PO Q12HR Digoxin [Lanoxin] 125 mcg PO DAILY Multivitamins, Thera [Multivitamin (formulary)] 1 each PO DAILY@1200 Calcium Carbonate/Vitamin D3 [Calcium 600-Vit D3 400 Tablet] 1 tab PO DAILY Atorvastatin [Lipitor] 20 mg PO HS ALPRAZolam [ALPRAZolam XR] 0.5 mg PO BID Ammonium Lactate Cream [Lac-Hydrin 12% Cream] 1 applic TOPICAL BID Finacea 1 applicate TOPICAL DAILY Fluocinonide 30 gm TOPICAL DAILY EPINEPHrine (Auto Inject) [Epipen] 0.3 mg IM ONCE PRN PRN Reason: Anaphylaxis Ketoconazole 2% Shampoo [Nizoral] 1 applic TOPICAL DAILY Discontinued Lisinopril [Prinivil] 10 mg PO HS Ibuprofen [Motrin] 600 mg PO Q8HR PRN PRN Reason: Pain Rivaroxaban [Xarelto] 20 mg PO HS Aspirin 81 mg PO DAILY Furosemide [Lasix] 20 mg PO DAILY Discharge Medication List ALPRAZolam [ALPRAZolam XR] 0.5 mg PO BID 12/08/14 [History] Ammonium Lactate Cream [Lac-Hydrin 12% Cream] 1 applic TOPICAL BID 12/08/14 [ History] Atorvastatin [Lipitor] 20 mg PO HS 12/08/14 [History] Calcium Carbonate/Vitamin D3 [Calcium 600-Vit D3 400 Tablet] 1 tab PO DAILY [History] Digoxin [Lanoxin] 125 mcg PO DAILY 12/08/14 [History] EPINEPHrine (Auto Inject) [Epipen] 0.3 mg IM ONCE PRN 12/08/14 [History] Finacea 1 applicate TOPICAL DAILY 12/08/14 [History] Flecainide Acetate [Tambocor] 100 mg PO Q12HR 12/08/14 [History] Fluocinonide 30 gm TOPICAL DAILY 12/08/14 [History] Metoprolol Tartrate [Lopressor] 50 mg PO BID 12/08/14 [History] Multivitamins, Thera [Multivitamin (formulary)] 1 each PO DAILY@1200 12/08/14 [ History] cycloSPORINE [Restasis] 1 applicator BOTH EYES BID 12/08/14 [History] metFORMIN HCL 1,000 mg PO DAILY 12/08/14 [History] Ketoconazole 2% Shampoo [Nizoral] 1 applic TOPICAL DAILY 10/11/17 [History] Ferrous Sulfate [Feosol] 325 mg PO BID #60 tab 10/13/17 [Rx] Omeprazole [PriLOSEC] 40 mg PO AC-[id number] #30 capsule. 10/13/17 [Rx] Polyethylene Glycol 3350 [Miralax] 17 gm PO DAILY PRN #15 packet 10/13/17 [Rx] Follow up Appointment(s)/Referral(s): Nicole Paredes MD [Primary Care Provider] - 3 Days Discharge Disposition: HOME SELF-CARE
[2017-10-13] MEDS ORDERED: PROPOFOL 10 MG/ML 20 ML VIAL IV ONE (16:25)
[2017-10-13] MEDS ORDERED: ePHEDrine SULFATE/0.9% NACL/PF 50 MG/5 ML SYRINGE IV ONE (16:25)
[2017-10-13] MEDS ORDERED: LIDOCAINE 1% INJ 10MG/ML (20 ML MDV) ONE (16:25)
[2017-10-13] MEDS ORDERED: IV FLUID CONTINUATION 1,000 ML IV ONE (16:28)
--- NOTE | 2017-10-13 17:33 | P.PCN ---
Date of Procedure: 10/13/17 Procedure(s) Performed: Procedure: 1. Esophagogastroduodenoscopy and biopsy. 2. Total colonoscopy. Preoperative diagnosis: Anemia and suspected GI bleeding. Postoperative diagnosis: 1. Small sliding hiatal hernia with no obvious esophagitis or complicated reflux disease. 2. Minimal gastritis and mild duodenitis but no ulcers or bleeding. 3. Mild colon diverticulosis, otherwise, exam to the cecum reveals no bleeding or other potential sources of bleeding. Preparation: GoLYTELY prep. Sedation: Was provided by anesthesia. Brief clinical history: The patient is a 72-year-old male history of anemia, A. fib maintained on XARELTO, diabetes, hypertension, admitted with lightheadedness shortness of breath especially with exertion for several months as well as left lower leg pain. Last dose of XARELTO 10/11/17. Denies overt bleeding, hematemesis, hematochezia or melena. Denies abdominal pain. No weight loss. No excessive usage of aspirin or NSAIDs. No alcohol. Admission hemoglobin 5.4 presently 6.2. MCV 93-102. Platelet 231. INR 1.3. BUN 57. Creatinine 1.6. Stool occult blood positive. He has received 2 units of blood and scheduled received 2 more. EGD and colonoscopy November 2014 for evaluation of epigastric pain change in bowel habits and intermittent lower abdominal pain mild iron deficiency anemia; EGD findings mild gastritis LA grade B reflux esophagitis. Colonoscopy 1 cm cecal polypectomy and 2 cm flat polyp with central depression in the ascending colon just proximal to the ileocecal valve status post submucosal injection partial piecemeal snare polypectomy and hot biopsy. Ascending colon polypectomy 4. Colon biopsies fragments of adenoma. Procedure: With the patient on his left lateral decubitus position and after informed consent and adequate sedation, I passed the Olympus-GIF 160 video upper endoscope through the cricopharyngeus down the esophagus. GE junction was around 42-43 cm from the incisors and there was a small sliding hiatal hernia but no definite esophagitis or complicated reflux disease. The endoscope was then passed into the stomach which was insufflated with air and inspected in detail including the retroflex view in the cardia. There was some mottling and erythema in the antrum but no ulcers or erosions. Pyloric channel did not show any ulcers. Duodenal bulb showed areas of erythema and submucosal hemorrhage but no ulcers or erosions. Postbulbar area and descending duodenum appeared within normal limits. I obtained biopsies from the duodenum, antrum and esophagus then the endoscope was withdrawn and I proceeded with the colonoscopy. Perianal area did not show any fissures or fistulas. There were no masses felt on digital rectal examination. The Olympus CFQ 160L video colonoscope was then inserted in the rectum and the usual fashion and advanced to the cecum. There was occasional small diverticular orifices noted in the sigmoid and right colon with no evidence of acute diverticulitis or strictures. The mucosa appeared healthy. No polyps or tumors were seen or any angiodysplasia or potential sources of bleeding. I retroflexed endoscope in the rectum before the endoscope was withdrawn. The patient tolerated the procedure well. Plan: The patient was reassured. Will allow regular diet. Consideration can be given for a capsule endoscopy as outpatient and further plans based on his course and blood counts.
[2017-10-13 17:57] LABS: Glucose,Whole Blood 129 mg/dL (75-99)
--- NOTE | 2017-10-18 08:59 | CDI ---
Last Revision, April 2017 Documentation Clarification Form Date: 10/18/17 From: Kylie Hossein Emilia Pierre, Meter Calibrator Hours-8:30 am & 5 pm MWendy Admit Date: 10/11/2017 7:48:00 PM Patient Name: Torie Bowles Visit Number: [id number] Discharge Date: 10/13/17 ATTENTION: The Clinical Documentation Specialists (CDI) and [facility] Coding Staff appreciate your assistance in clarifying documentation. Please respond to the clarification below the line at the bottom and electronically sign. The CDI & [facility] Coding staff will review the response and follow-up if needed. Please note: Queries are made part of the Legal Health Record. If you have any questions, please contact the author of this message via ITS. Dr. Marc Stone Atrial fibrillation is documented in the ED note, consult, H&P and DS. He is on Tambocor and Xarelto - but is being held due to GI bleed. EKG: nonspecific intraventricular block. In your professional opinion, can you please clarify the type of atrial fibrillation, if known? Chronic/Permanent Paroxysmal Persistent Other, please specify Unable to determine Please continue to document in your progress notes and discharge summary in order to capture severity of illness and risk of mortality. Include clinical findings that support your diagnosis. Paroxysmal MTDD
== END 2017-10-13 19:29 | disposition home or self-care (01) | DRG 378 ==
LOC: EC 16:30 → 6SEL 19:48
PROVIDERS: ADMIT Hospitalist; ATTEND Hospitalist
PROC: 30233N1 Transfusion of Nonautologous Red Blood Cells into Peripheral Vein, Percutaneous Approach (ICD-10-PCS; 2017-10-11)
PROC: 0DB58ZX Excision of Esophagus, Via Natural or Artificial Opening Endoscopic, Diagnostic (ICD-10-PCS; 2017-10-13)
PROC: 0DJD8ZZ Inspection of Lower Intestinal Tract, Via Natural or Artificial Opening Endoscopic (ICD-10-PCS; 2017-10-13)
PROC: 0DB98ZX Excision of Duodenum, Via Natural or Artificial Opening Endoscopic, Diagnostic (ICD-10-PCS; principal; 2017-10-13 14:50)
PROC: 0DB78ZX Excision of Stomach, Pylorus, Via Natural or Artificial Opening Endoscopic, Diagnostic (ICD-10-PCS; 2017-10-13 14:50)
DX: K92.2 Gastrointestinal hemorrhage, unspecified (principal); D62 Acute posthemorrhagic anemia; N17.9 Acute kidney failure, unspecified; I95.9 Hypotension, unspecified; E87.5 Hyperkalemia; E11.9 Type 2 diabetes mellitus without complications; K44.9 Diaphragmatic hernia without obstruction or gangrene; K29.70 Gastritis, unspecified, without bleeding; K29.80 Duodenitis without bleeding; K57.30 Diverticulosis of large intestine without perforation or abscess without bleeding; I48.0 Paroxysmal atrial fibrillation; L30.9 Dermatitis, unspecified; K21.0 Gastro-esophageal reflux disease with esophagitis; T46.4X5A Adverse effect of angiotensin-converting-enzyme inhibitors, initial encounter; K59.00 Constipation, unspecified; M79.662 Pain in left lower leg; F41.9 Anxiety disorder, unspecified; L71.9 Rosacea, unspecified; I10 Essential (primary) hypertension; Z87.891 Personal history of nicotine dependence; Z79.01 Long term (current) use of anticoagulants; Z79.84 Long term (current) use of oral hypoglycemic drugs; Z79.82 Long term (current) use of aspirin; Z79.899 Other long term (current) drug therapy; Z91.030 Bee allergy status; Z97.0 Presence of artificial eye; Z86.010 Personal history of colon polyps; Z95.0 Presence of cardiac pacemaker; Z82.49 Family history of ischemic heart disease and other diseases of the circulatory system; Z83.3 Family history of diabetes mellitus; Z80.0 Family history of malignant neoplasm of digestive organs; Z80.42 Family history of malignant neoplasm of prostate; Z83.6 Family history of other diseases of the respiratory system; Z82.3 Family history of stroke; Z80.3 Family history of malignant neoplasm of breast; D50.9 Iron deficiency anemia, unspecified
CPT/HCPCS: 36415; 43235; 45378; 71046; 80048; 80051; 80053; 80162; 81003; 82272; 82550; 82553; 82565; 82607; 82728; 82746; 82747; 83036; 83615; 83735; 83880; 84484; 84520; 85025; 85027; 85045; 85379; 85610; 85730; 86850; 86900; 86901; 86920; 93005; 94640; 94760; 99291

== ENCOUNTER → 2018-07-17 | Outpatient (CLI) | payer MEDICARE, OTHER ==
--- NOTE | 2018-07-18 04:24 | CT ---
EXAMINATION TYPE: CT abdomen w con DATE OF EXAM: 07/17/2018 COMPARISON: NONE HISTORY: 73-year-old male LUQ pain x2-3months. Chronic gastritis with bleeding TECHNIQUE: Contiguous axial scanning of the abdomen following administration of 100 ml Isovue 300 IV contrast. Delayed images through the kidneys and coronal/sagittal reconstructions performed. CT DLP: 1347 mGycm Automated exposure control for dose reduction was used. FINDINGS: Right atrial and right ventricular pacer leads are present. Heart normal size without pericardial eff usion. Lung bases clear without pleural effusion. 3.3 cm cyst segment 4 left liver lobe. Approximately 3 additional subcentimeter hypodensities are pre sent in the left liver lobe, too small fractured CT characterization, likely tiny cysts. There is a 1 .8 cm heterogeneous hypodensity segment 2 left liver lobe, axial image 15 which is indeterminate. The se can be reassessed at follow-up. Portal venous system is patent. No biliary ductal dilatation. Gallbladder, adrenal glands, right kidney and pancreas appear within normal limits. Tiny calcified gr anuloma medial aspect of the spleen. Spleen is normal size and otherwise normal in appearance. Left kidney shows exophytic anterior cyst from the mid pole measuring 3.2 cm additional 2.1 cm cyst m edial lower pole with an adjacent subcentimeter hypodensity likely cyst. Exophytic from the posterior lower pole, there is an indeterminate, soft tissue appearing exophytic l esion measuring 1.2 cm, axial image 39. Symmetric uptake and excretion of contrast from both kidneys. No dilated small bowel, free fluid, or free air. No mesenteric or retroperitoneal lymphadenopathy. Mild overall stool burden. No pericolonic inflammatory change. Pelvis not imaged. Bones: Mild degenerative changes at the SI joints. Moderate to advanced degenerative disc disease mid to lower lumbar spine along with facet arthropathy and very bony or foraminal narrowing particularly on the right. At least mild spinal canal stenosis at L3-L4. IMPRESSION: 1. LEFT HEPATIC LOBE CYSTS MEASURING UP TO 3.3 CM. A 1.8 CM LESION IN SEGMENT 2 OF THE LEFT LIVER LOB E IS INDETERMINATE AND CAN BE REASSESSED AT A 6 MONTH FOLLOW-UP. A SMALL HEMANGIOMA IS POSSIBLE. OTHE R ETIOLOGY NOT EXCLUDED AT THIS TIME. 2. LEFT RENAL CYSTS MEASURING UP TO 3.2 CM. AN EXOPHYTIC, INTERMEDIATE DENSITY 1.2 CM LESION FROM THE POSTERIOR LOWER POLE OF THE LEFT KIDNEY IS INDETERMINATE. A HEMORRHAGIC/PROTEINACEOUS CYST IS POSSIB LE. THIS SHOULD ALSO BE REASSESSED FOR STABILITY AT THE PATIENT'S 6 MONTH FOLLOW-UP.
== END | disposition home or self-care (01) ==
LOC: RADCTMAIN 14:40
PROVIDERS: ATTEND Family Medicine
DX: N28.1 Cyst of kidney, acquired (principal); K76.89 Other specified diseases of liver
CPT/HCPCS: 82565; 84520; 74160; 36415; Q9967

== ENCOUNTER → 2018-09-10 | Outpatient (CLI) | payer MEDICARE, OTHER ==
--- NOTE | 2018-09-10 14:49 | CT ---
EXAMINATION TYPE: CT chest wo con DATE OF EXAM: 09/10/2018 COMPARISON: CT abdomen July 17, 2018 HISTORY: Follow up pulmonary nodule. Recent abnormal CT? CT DLP: 733.5 mGycm. Automated Exposure Control for Dose Reduction was Utilized. TECHNIQUE: CT scan of the thorax is performed without IV contrast. FINDINGS: LUNGS: There is 4 mm right upper lobe nodule axial image 24. There is 3 mm right lower lobe nodule ax ial image 38. There are few additional scattered smaller nodules throughout the right lung. There is subpleural 3 mm nodule axial image 26 involving left lower lobe MEDIASTINUM: Lack of IV contrast is noted to limit evaluation for mediastinal and especially hilar ad enopathy. There are no definitive greater than 1 cm hilar or mediastinal lymph nodes. No cardiomega ly or pericardial effusion is seen. Dual-lead pacemaker with leads terminating in right atrium and ri ght ventricle are identified. There is moderate three-vessel coronary artery calcification which is n oted marked underlying coronary artery disease. OTHER: There is 3.2 cm low dense lesion in the liver axial image 58 felt to reflect thin-walled cyst with smaller subcentimeter hypodense lesions superiorly redemonstrated. There is 3.2 cm exophytic low dense lesion anteriorly upper pole left kidney, Hounsfield units average 9 consistent with simple re nal cyst. Moderate to severe multilevel spurring in the mid to lower thoracic spine is present. Bilat eral gynecomastia is present. IMPRESSION: Scattered tiny nodules measuring up to 4 mm in size. Correlate clinically to help determi ne if need CT follow-up per Fleischner Society recommendations.
== END | disposition home or self-care (01) ==
LOC: RADCTMAIN 12:47
PROVIDERS: ATTEND Internal Medicine Sleep Medicine
DX: R91.1 Solitary pulmonary nodule (principal)
CPT/HCPCS: 71250

== ENCOUNTER → 2018-11-06 | Outpatient (CLI) | payer MEDICARE, OTHER ==
[2018-11-06 13:18] LABS: African American GFR (CKD) >90 (>60 ml/min/1.73 sqM); Anion Gap 8 mmol/L; Blood Urea Nitrogen 22 mg/dL (9-20); Calcium 9.7 mg/dL (8.4-10.2); Carbon Dioxide 30 mmol/L (22-30); Chloride 102 mmol/L (98-107); Glucose 120 mg/dL (74-99); Potassium 5.5 mmol/L (3.5-5.1); Sodium 140 mmol/L (137-145)
== END | disposition home or self-care (01) ==
LOC: LABPAT 12:21
PROVIDERS: ATTEND Internal Medicine Clinical Cardiac Electrophysiology
DX: Z01.812 Encounter for preprocedural laboratory examination (principal); I49.5 Sick sinus syndrome; I48.1 Persistent atrial fibrillation
CPT/HCPCS: 36415; 80048

== ENCOUNTER 2018-11-10 10:47 | Emergency (ER) | payer MEDICARE, OTHER ==
[2018-11-10 10:56] VITALS: BP 146/119; PULSE 67; RESP 18; TEMP 98.6
[2018-11-10] MEDS ORDERED: LIDOCAINE VISCOUS 2% 15 ML CUP MUCOUS MEM ONE (11:29)
--- NOTE | 2018-11-10 11:37 | ED ---
Skin/Abscess/FB HPI - General Source: patient, RN notes reviewed, old records reviewed Mode of arrival: wheelchair Limitations: no limitations <Khalida Simons - Last Filed: 11/10/18 11:31> <Fredi Manzanares - Last Filed: 11/10/18 11:44> - General Chief complaint: Skin/Abscess/Foreign Body Stated complaint: DENTAL/MOUTH ABSCESS Time Seen by Provider: 11/10/18 11:05 - History of Present Illness Initial comments: 73-year-old male present emergency department today complaining of right-sided upper lip swelling for the past week.He has history of diabetes, and A. fib. He reports it started with possibility of a dental infection which progressed to the facial cellulitis. He saw his primary care doctor yesterday was given a injection of IM Rocephin and started on Bactrim. He's had 2 doses of Bactrim as well as this time. Patient reports that the swelling seems to worse in the lip and he comes here requesting incision and drainage. Patient states that he does see a dentist. He denies any fevers or chills. (Khalida Simons) - Related Data Home Medications Medication Instructions Recorded Confirmed ALPRAZolam [ALPRAZolam XR] 0.5 mg PO BID 12/08/14 11/10/18 Atorvastatin [Lipitor] 20 mg PO HS 12/08/14 11/10/18 Digoxin [Lanoxin] 125 mcg PO DAILY 12/08/14 11/10/18 EPINEPHrine (Auto Inject) [Epipen] 0.3 mg IM ONCE PRN 12/08/14 11/10/18 Finacea 1 applicate TOPICAL DAILY 12/08/14 11/10/18 Flecainide Acetate [Tambocor] 100 mg PO Q12HR 12/08/14 11/10/18 Metoprolol Tartrate [Lopressor] 50 mg PO BID 12/08/14 11/10/18 Multivitamins, Thera [Multivitamin 1 tab PO DAILY@1200 12/08/14 11/10/18 (formulary)] cycloSPORINE [Restasis] 1 applicator BOTH EYES BID 12/08/14 11/10/18 metFORMIN HCL 1,000 mg PO BID 12/08/14 11/10/18 Ketoconazole 2% Shampoo [Nizoral] 1 applic TOPICAL DAILY 10/11/17 11/10/18 Ammonium Lactate Cream [Lac-Hydrin 1 applic TOPICAL DAILY 11/07/18 11/10/18 12% Cream] Dextran 70/Hypromellose [Genteal 1 drop BOTH EYES DAILY 11/07/18 11/10/18 Tears 0.1%-0.3% Drop] Fluocinonide 0.05% [Lidex 0.05% 1 applic TOPICAL DAILY 11/07/18 11/10/18 cream] Lisinopril [Zestril] 10 mg PO HS 11/07/18 11/10/18 Sodium Wash 10% 1 applicate TOPICAL DAILY PRN 11/07/18 11/10/18 Carboxymethylcellulose Sodium 1 drop BOTH EYES QID 11/10/18 11/10/18 [Refresh Tears] Previous Rx's Medication Instructions Recorded Ferrous Sulfate [Feosol] 325 mg PO BID #60 tab 10/13/17 Omeprazole [PriLOSEC] 40 mg PO AC-BRKFST #30 capsule. 10/13/17 Rivaroxaban [Xarelto] 20 mg PO HS #30 tab 10/13/17 Clindamycin [Cleocin] 450 mg PO TID 7 Days capsule 11/10/18 Allergies Allergy/AdvReac Type Severity Reaction Status Date / Time venom-honey bee Allergy Anaphylaxis Verified 11/10/18 11:23 [bee venom (honey bee)] Review of Systems ROS Other: All systems not noted in ROS Statement are negative. <Khalida Simons - Last Filed: 11/10/18 11:31> ROS Other: All systems not noted in ROS Statement are negative. <Fredi Manzanares - Last Filed: 11/10/18 11:44> ROS Statement: Those systems with pertinent positive or pertinent negative responses have been documented in the HPI. Past Medical History Past Medical History: Atrial Fibrillation, Diabetes Mellitus, Hypertension Additional Past Medical History / Comment(s): hemorrhoids,polyps,rosacea- rhinophyna, dermatitis,prosthesis lt eye History of Any Multi-Drug Resistant Organisms: None Reported Past Surgical History: Orthopedic Surgery, Pacemaker Additional Past Surgical History / Comment(s): lt eye surgery , L knee Past Anesthesia/Blood Transfusion Reactions: No Reported Reaction Type of Cardiac Device: Permanent Pacemaker Device Placement Date:: Dec Past Psychological History: Anxiety Smoking Status: Never smoker Past Alcohol Use History: None Reported Past Drug Use History: None Reported - Past Family History Brother(s) Family Medical History: AFIB, Cancer, Diabetes Mellitus, Myocardial Infarction ([place]) Additional Family Medical History / Comment(s): esophageal ca, liver ca,prostate ca,sleep apnea Father Family Medical History: CVA/TIA Additional Family Medical History / Comment(s): at age 88 Mother Family Medical History: No Reported History Additional Family Medical History / Comment(s): . Sister(s) Family Medical History: Cancer, Diabetes Mellitus Additional Family Medical History / Comment(s): breast <Khalida Simons - Last Filed: 11/10/18 11:31> General Exam Limitations: no limitations General appearance: alert, in no apparent distress Head exam: Present: atraumatic, normocephalic, normal inspection Eye exam: Present: normal appearance, PERRL, EOMI. Absent: scleral icterus, conjunctival injection, periorbital swelling ENT exam: Present: normal exam, mucous membranes moist. Absent: normal oropharynx (Patient has significant swelling over the right upper lip. Area of fluctuance over the inner lip measuring 4cm. ) Neck exam: Present: normal inspection. Absent: tenderness, meningismus, lymphadenopathy Respiratory exam: Present: normal lung sounds bilaterally. Absent: respiratory distress, wheezes, rales, rhonchi, stridor Cardiovascular Exam: Present: regular rate, normal rhythm, normal heart sounds. Absent: systolic murmur, diastolic murmur, rubs, gallop, clicks GI/Abdominal exam: Present: soft, normal bowel sounds. Absent: distended, tenderness, guarding, rebound, rigid Extremities exam: Present: normal inspection, full ROM, normal capillary refill. Absent: tenderness, pedal edema, joint swelling, calf tenderness Back exam: Present: normal inspection Neurological exam: Present: alert, oriented X3, CN II-XII intact Psychiatric exam: Present: normal affect, normal mood Skin exam: Present: warm, dry, intact, normal color <Khalida Simons - Last Filed: 11/10/18 11:31> - General Exam Comments Initial Comments: Pleasant 73-year-old male. Alert and oriented 3. No distress. (Khalida Simons) Course <Fredi Manzanares - Last Filed: 11/10/18 11:44> Vital Signs 11/10/18 10:52 Temperature 98.6 F Pulse Rate 67 Respiratory 18 Rate Blood Pressure 146/119 O2 Sat by Pulse 98 Oximetry - Reevaluation(s) Reevaluation #1: 11/10/18 11:43 PA supervision: I pursued [id number] evaluation the patient has had swelling to his right upper lip for at least a week his now extending somewhat superior to the lip on clinical exam there is evidence of an abscess. Patient will have the abscess drained by the PA. I do agree with the assessment and plan. Discussed with the patient and his the plan he will get a change in a ntibiotics after the drainage. He does agree with the assessment and plan I do also. (Fredi Manzanares) Procedures - Incision & Drainage Indication: abscess Site: lip Size (cm): 4 Anesthetic Used: lidocaine 1% Scalpel Used: #11 I&D Drainage Obtained: Pus, Blood Culture Obtained?: Yes Patient Tolerated Procedure: well, no complications <Khalida Simons - Last Filed: 11/10/18 11:31> Medical Decision Making <Khalida Simons - Last Filed: 11/10/18 11:31> - Medical Decision Making 73-year-old male presents with right upper lip abscess. Patient has been on Bactrim for the past day. We'll switch the patient's antibiotics to clindamycin at this time. Incision and drainage was completed, Prelone fluid was removed from the lip. Patient tolerated the procedure well. Patient will be Advised to have close follow up with Pcp and dentist. All questions answered and return parameters discussed. (Khalida Simons) Disposition Is patient prescribed a controlled substance at d/c from ED?: No Time of Disposition: 11:36 <Khalida Simons - Last Filed: 11/10/18 11:31> <Fredi Manzanares - Last Filed: 11/10/18 11:44> Clinical Impression: Lip abscess Disposition: HOME SELF-CARE Condition: Good Instructions (If sedation given, give patient instructions): Abscess Incision and Drainage (ED), Abscess (ED) Additional Instructions: Patient advised to do salt water rinses. Take the antibiotics as prescribed. Have close follow-up with your dentist and primary care physician. If the area of redness swelling gets worse return for reevaluation. Prescriptions: Clindamycin [Cleocin] 450 mg PO TID 7 Days capsule Referrals: Nicole Paredes MD [Primary Care Provider] - 1-2 days
[2018-11-10] MEDS ORDERED: CLINDAMYCIN 150 MG CAP PO STA (12:24)
== END 2018-11-10 12:55 | disposition home or self-care (01) ==
LOC: EC 10:47
DX: K13.0 Diseases of lips (principal); I48.91 Unspecified atrial fibrillation; E11.9 Type 2 diabetes mellitus without complications; I10 Essential (primary) hypertension; F41.9 Anxiety disorder, unspecified; Z95.0 Presence of cardiac pacemaker; Z79.84 Long term (current) use of oral hypoglycemic drugs; Z79.899 Other long term (current) drug therapy; Z91.030 Bee allergy status
CPT/HCPCS: 10060; 99283

== ENCOUNTER 2018-12-25 13:47 | Day surgery (SDC) | payer MEDICARE, OTHER ==
[2018-12-21 11:43] VITALS: BMI 45.7
[2018-12-25] MEDS ORDERED: SODIUM CHLORIDE 0.9% 1,000 ML IV SCH (14:29)
[2018-12-25 14:39] VITALS: PULSE 67; RESP 20; TEMP 98.3
[2018-12-25 15:59] VITALS: BP 132/74
--- NOTE | 2018-12-25 19:08 | P.PCN ---
Preoperative Diagnosis: Diagnosis Increase RV pacing percentage during atrial fibrillation Symptomatic persistent atrial fibrillation Dual-chamber pacemaker implant, chronic Plan Left upper extremity venogram and cinefluoroscopy of the leads 15 mL IV dye was injected in the left upper arm and the left upper extremity venogram was performed. The subclavian axillary and the central venous system was patent. Some collaterals were noted Cinefluoroscopy of the leads was performed Atrial lead in right atrial appendage screwed in, no fractures or breaks RV lead in the low RV septum screwed in, no fractures or breaks Plan Consider rhythm control atrial fibrillation to minimize RV pacing versus upgrade to a biventricular pacemaker for management of high RV pacing percentage during atrial fibrillation
== END 2018-12-25 15:15 | disposition home or self-care (01) ==
LOC: CATHEP 13:47
PROVIDERS: ATTEND Internal Medicine Clinical Cardiac Electrophysiology
DX: I48.1 Persistent atrial fibrillation (principal); Z95.0 Presence of cardiac pacemaker; I11.9 Hypertensive heart disease without heart failure; E11.9 Type 2 diabetes mellitus without complications; F17.210 Nicotine dependence, cigarettes, uncomplicated; G47.33 Obstructive sleep apnea (adult) (pediatric); Z79.84 Long term (current) use of oral hypoglycemic drugs; Z79.899 Other long term (current) drug therapy; Z79.01 Long term (current) use of anticoagulants; Z88.0 Allergy status to penicillin
CPT/HCPCS: 36005; 75820; 76000

== ENCOUNTER → 2019-01-15 | Outpatient (CLI) | payer MEDICARE, OTHER ==
--- NOTE | 2019-01-15 09:56 | US ---
EXAMINATION TYPE: US abd limited kidneys/bladder DATE OF EXAM: 01/15/2019 COMPARISON: CT abdomen July 17, 2018 CLINICAL HISTORY: N28.1 Renal cyst, K76.89 Other diseases of liver. Left renal cysts, liver lesions EXAM MEASUREMENTS: Liver Length: 20.1 cm Gallbladder Wall: 0.3 cm CBD: 0.6 cm Right Kidney: 12.6 x 6.3 x 4.7 cm Left Kidney: 10.9 x 5.1 x 4.8 cm Technical limitations due to patient's body habitus and large amount of overlying bowel content Pancreas: Obscured by bowel gas Liver: cystic areas noted, largest is complex = 3.6 x 3.0 x 3.7cm Gallbladder: no evidence of stones as visualized CBD: limited evaluation, appears wnl Right Kidney: no evidence of hydronephrosis Left Kidney: cystic areas noted, largest = 3.0 x 3.2 x 3.5cm Bladder: not fully distended Bilateral Jets Seen no Suboptimal evaluation of pancreas on images saved. Heterogeneous hyperechoic appearance of liver cons istent with diffuse fatty infiltration. By urination for focal masses suboptimal due to the heterogen eity. There is redemonstration of a few small simple appearing thin-walled cysts throughout the liver with largest lesion noted anteriorly. Gallbladder is seen without shadowing mobile gallstones. A few simple appearing cysts scattered throughout the left kidney are redemonstrated. No hydronephrosis in either kidney. Bladder is suboptimally distended without intraluminal mass. IMPRESSION: A few simple appearing thin-walled cysts scattered throughout the left kidney and liver o n background of diffuse fatty infiltration. No significant change from recent CT.
== END | disposition home or self-care (01) ==
LOC: RADUSWWP 08:48
PROVIDERS: ATTEND Family Medicine
DX: N28.1 Cyst of kidney, acquired (principal); K76.0 Fatty (change of) liver, not elsewhere classified
CPT/HCPCS: 76705; 76770

== ENCOUNTER → 2019-02-19 | Outpatient (CLI) | payer MEDICARE, OTHER ==
--- NOTE | 2019-02-19 12:53 | CT ---
EXAMINATION TYPE: CT abdomen wo/w con DATE OF EXAM: 02/19/2019 COMPARISON: 07/17/2018 HISTORY: Renal cysts CT DLP: 3090.2 mGycm Automated exposure control for dose reduction was used. TECHNIQUE: Helical acquisition of images was performed from the lung bases through the top of iliac crest to include entire abdomen. CONTRAST: Performed with Oral Contrast and with IV Contrast, patient injected with 100 mL of Isovue 300. FINDINGS: Right atrial and right ventricular pacer leads are present. Heart normal size without pericardial eff usion. Lung bases clear without pleural effusion. Right atrial and right ventricular pacer leads are present. Heart normal size without pericardial eff usion. Lung bases clear without pleural effusion. Portal venous system is patent. No biliary ductal dilatation. Gallbladder, adrenal glands, right kidney and pancreas appear within normal limits. Tiny calcified gr anuloma medial aspect of the spleen. Spleen is normal size and otherwise normal in appearance. Left kidney shows exophytic anterior cyst from the mid pole measuring 3.2 cm additional 2.1 cm cyst m edial lower pole with an adjacent subcentimeter hypodensity likely cyst. Exophytic from the posterior lower pole, there is an indeterminate, soft tissue appearing exophytic l esion measuring 1.2 cm No dilated small bowel, free fluid, or free air. No mesenteric or retroperitoneal lymphadenopathy. Pelvis not imaged. Bones: Mild degenerative changes at the SI joints. Moderate to advanced degenerative disc disease mid to lower lumbar spine along with facet arthropathy and very bony or foraminal narrowing particularly on the right. At least mild spinal canal stenosis at L3-L4. 3.3 cm cyst segment 4 left liver lobe. Approximately 3 additional subcentimeter hypodensities are pre sent in the left liver lobe, too small to characterize but, likely tiny cysts. There is a 1.8 cm hete rogeneous hypodensity segment 2 left liver lobe, is stable and is indeterminate. Small fat-containing periumbilical hernia. IMPRESSION: 1. The 1.2 cm exophytic lower pole left renal cyst is stable in size but appears iso to hyperdense on noncontrast imaging. This likely suggest a degree of hemorrhage or high protein content. It is too s mall to accurately measure Hounsfield units but appears stable in size. However, cannot exclude perip heral enhancement. Recommend this lesion be further characterized with MRI. 3. Stable hepatic lesions unchanged from the prior exam and likely benign.
== END | disposition home or self-care (01) ==
LOC: RADCTMAIN 09:43
PROVIDERS: ATTEND Urology
DX: N28.1 Cyst of kidney, acquired (principal)
CPT/HCPCS: 82565; 84520; 74170; Q9967

== ENCOUNTER → 2019-03-05 | Outpatient (CLI) | payer MEDICARE, OTHER ==
--- NOTE | 2019-03-06 04:52 | CT ---
EXAMINATION TYPE: CT chest wo con DATE OF EXAM: 03/05/2019 COMPARISON: 09/10/2018 HISTORY: 73-year-old male solitary pulmonary nodule, follow-up exam TECHNIQUE: Contiguous axial scanning of the chest without IV contrast. Coronal and sagittal reconstru ctions performed. CT DLP: 779 mGycm Automated exposure control for dose reduction was used. FINDINGS: Left anterior chest wall pacemaker generator with right atrial and right ventricular leads. Heart normal size without pericardial effusion. Scattered coronary vessel calcifications are present. Aorta normal caliber with conventional arch vessel branching anatomy and mild atherosclerotic arch ca lcifications. No thoracic lymphadenopathy by CT size criteria. Mild bilateral gynecomastia. Stable 4 mm right upper lobe pulmonary nodule, axial image 21. 3 to 4 mm pulmonary nodule peripheral right midlung, axial image 23 is unchanged. 4 mm pulmonary nodule left mid lung along the major fissure likely fissural lymph node, unchanged. No new pulmonary nodules are seen. No consolidation or pleural effusion. Partially visualized exophytic lesion anterior left kidney measuring up to 3.2 cm suggestive of a cys t. Subtle contour nodularity of the liver difficult to exclude, reference axial image 48. Stable 1 cm and smaller 2 hypodensities within the left hepatic lobe, probable cysts in the larger 2.9 cm cyst i n the mid liver. Bones: DISH within the mid and lower thoracic spine. IMPRESSION: 1. A FEW PULMONARY NODULES MEASURING UP TO 4 MM ARE UNCHANGED FOR 6 MONTHS. THIS SUGGESTS A BENIGN ET IOLOGY. IF THE PATIENT HAS RISK FACTORS FOR DEVELOPMENT OF LUNG CANCER, AN ADDITIONAL ONE-YEAR FOLLOW -UP CAN BE PERFORMED. 2. SUBTLE CONTOUR NODULARITY OF THE LIVER. UNDERLYING CIRRHOSIS DIFFICULT TO EXCLUDE. CORRELATE CLINI ESTELA.
== END | disposition home or self-care (01) ==
LOC: RADCTMAIN 12:18
PROVIDERS: ATTEND Internal Medicine Sleep Medicine
DX: R91.8 Other nonspecific abnormal finding of lung field (principal)
CPT/HCPCS: 71250

== ENCOUNTER → 2019-05-16 | Outpatient (CLI) | payer MEDICARE, OTHER ==
[2019-05-16 14:54] LABS: African American GFR (CKD) >90 (>60 ml/min/1.73 sqM); Blood Urea Nitrogen 20 mg/dL (9-20); Non-African American GFR(CKD) 85 (>60 ml/min/1.73 sqM)
--- NOTE | 2019-05-16 15:39 | CT ---
EXAMINATION TYPE: CT brain wo/w con DATE OF EXAM: 05/16/2019 COMPARISON: None. HISTORY: Pt c/o chronic headaches, facial aches, neck ache, dehydration CT DLP: 2216.8 mGycm Automated exposure control for dose reduction was used. CONTRAST: CT scan of the head is performed without and with IV Contrast, patient injected with 100 mL of Isovue 300. FINDINGS: Noncontrast images show no acute intracranial hemorrhage or midline shift. Diffuse ventricu lar and sulcal prominence is present. Low-attenuation in the deep and periventricular white matter is seen. Postcontrast images show no suspicious enhancing mass. Prosthetic left globe is present. Old f racture deformity medial wall left orbit incidentally noted. Visualized sinuses are clear. IMPRESSION: There is [id number]-[id number] diffuse cerebral atrophy and moderate to advanced chronic small vessel ischemic change.
== END | disposition home or self-care (01) ==
LOC: RADCTMAIN 14:08
DX: G31.9 Degenerative disease of nervous system, unspecified (principal); I67.82 Cerebral ischemia; R51 Headache
CPT/HCPCS: 82565; 84520; 70470; 36415; Q9967

== ENCOUNTER → 2020-03-16 | Outpatient (CLI) | payer MEDICARE, OTHER ==
[2020-03-16 17:54] LABS: African American GFR (CKD) >90 (>60 ml/min/1.73 sqM); Blood Urea Nitrogen 18 mg/dL (9-20); Non-African American GFR(CKD) 79 (>60 ml/min/1.73 sqM)
--- NOTE | 2020-03-17 07:37 | CT ---
EXAMINATION TYPE: CT abdomen wo/w con DATE OF EXAM: 03/16/2020 COMPARISON: CT abdomen February 19, 2019 and older study July 17, 2018. CT lumbar spine March 04, 2015 HISTORY: f/u renal cysts CT DLP: 3829.5 mGycm, Automated Exposure Control for Dose Reduction was Utilized. CONTRAST: CT scan of the abdomen is performed with oral and without and with IV Contrast, patient injected with 100 mL of Isovue 300. FINDINGS: LUNG BASES: Partial visualization of right-sided pacemaker wires is redemonstrated. LIVER/GB: Liver is heterogeneously hypodense consistent with diffuse fatty infiltration. A few scatte red thin-walled cysts noted throughout the left hepatic lobe. PANCREAS: No significant abnormality is seen. SPLEEN: Medial punctate calcification. ADRENALS: No significant abnormality is seen. KIDNEYS: Noncontrast images show no renal calculi bilaterally. Postcontrast images show a few scatter ed thin-walled cysts including largest 3.7 cm exophytic cyst anteriorly in the mid pole level. Both k idneys show mild to borderline moderate perinephric fluid and/or fat stranding, nonspecific finding. Stable roughly 1 cm exophytic slightly hyperdense lesion posteriorly lower pole level seen best on ax ial image 41 is diminished in size from 2015 CT presumed benign. Symmetric cortical medullary uptake and excretion is seen without hydronephrosis. BOWEL: Oral contrast does not reach colonic level. No suspicious small or large bowel dilatation is p resent. Medial course to the distal left colon noted. LYMPH NODES: No new greater than 1 cm abdominal lymph nodes are appreciated. OSSEOUS STRUCTURES: Multilevel spurring in the spine. Olbgcshy-ww-ewhkyn disc space narrowing with va cuum disc phenomenon L3-L4 level. Facet arthropathy lower lumbar levels. OTHER: [id number]-[id number] calcified plaque of the aorta extends into branch vessels IMPRESSION: Roughly 1.0 cm posterior exophytic lesion lower pole left kidney is stable from most rece nt CT, diminished in size from 2015 CT. Presumed benign. Simple appearing scattered thin-walled left renal cysts noted. No concerning solid or cystic renal mass in either kidney.
== END | disposition home or self-care (01) ==
LOC: RADCTMAIN 17:05
PROVIDERS: ATTEND Urology
DX: N28.1 Cyst of kidney, acquired (principal); Z88.0 Allergy status to penicillin; Z91.030 Bee allergy status; Z91.048 Other nonmedicinal substance allergy status
CPT/HCPCS: 82565; 84520; 74170; 36415; Q9967

== ENCOUNTER 2020-04-21 22:29 | Emergency (ER) | payer MEDICARE, OTHER ==
--- NOTE | 2020-04-21 23:14 | ED ---
General Adult HPI - General Chief complaint: Recheck/Abnormal Lab/Rx Stated complaint: High potassium Time Seen by Provider: 04/21/20 23:05 Source: patient, RN notes reviewed, old records reviewed Mode of arrival: ambulatory Limitations: no limitations - History of Present Illness Initial comments: 74-year-old male presenting for evaluation of abnormal outpatient lab. Patient was seen at the CT clinic today had blood drawn, was called to inform him that his potassium was 5.9 and he should present to the emergency department. He has no complaints, no chest pain or dyspnea. He states he has been urinating normally. No history of kidney disease. He states he has had approximately 3 days of loose stool and diarrhea. No vomiting. No abdominal pain. No fever. No other complaints. - Related Data Home Medications Medication Instructions Recorded Confirmed ALPRAZolam [ALPRAZolam XR] 0.5 mg PO BID 12/08/14 12/21/18 Atorvastatin [Lipitor] 20 mg PO HS 12/08/14 12/21/18 Digoxin [Lanoxin] 125 mcg PO DAILY 12/08/14 12/21/18 EPINEPHrine (Auto Inject) [Epipen] 0.3 mg IM ONCE PRN 12/08/14 12/21/18 Finacea 1 applicate TOPICAL DAILY 12/08/14 12/21/18 Flecainide Acetate [Tambocor] 100 mg PO Q12HR 12/08/14 12/21/18 Metoprolol Tartrate [Lopressor] 50 mg PO BID 12/08/14 12/21/18 Multivitamins, Thera [Multivitamin 1 tab PO DAILY@1200 12/08/14 12/21/18 (formulary)] cycloSPORINE [Restasis] 1 applicator BOTH EYES BID 12/08/14 12/21/18 metFORMIN HCL 1,000 mg PO BID 12/08/14 12/21/18 Ketoconazole 2% Shampoo [Nizoral] 1 applic TOPICAL DAILY 10/11/17 12/21/18 Ammonium Lactate Cream [Lac-Hydrin 1 applic TOPICAL DAILY 11/07/18 12/21/18 12% Cream] Dextran 70/Hypromellose [Genteal 1 drop BOTH EYES DAILY 11/07/18 12/21/18 Tears 0.1%-0.3% Drop] Fluocinonide 0.05% [Lidex 0.05% 1 applic TOPICAL DAILY 11/07/18 12/21/18 cream] Sodium Wash 10% 1 applicate TOPICAL DAILY PRN 11/07/18 12/21/18 lisinopriL [Zestril] 10 mg PO HS 11/07/18 12/21/18 Carboxymethylcellulose Sodium 1 drop BOTH EYES QID 11/10/18 12/21/18 [Refresh Tears] Previous Rx's Medication Instructions Recorded Ferrous Sulfate [Feosol] 325 mg PO BID #60 tab 10/13/17 Omeprazole [PriLOSEC] 40 mg PO AC-BRKFST #30 capsule. 10/13/17 Rivaroxaban [Xarelto] 20 mg PO HS #30 tab 10/13/17 Allergies Allergy/AdvReac Type Severity Reaction Status Date / Time Penicillins Allergy Itching Verified 04/21/20 22:37 venom-honey bee Allergy Anaphylaxis Verified 04/21/20 22:37 [bee venom (honey bee)] Review of Systems ROS Statement: Those systems with pertinent positive or pertinent negative responses have been documented in the HPI. ROS Other: All systems not noted in ROS Statement are negative. Past Medical History Past Medical History: Atrial Fibrillation, Diabetes Mellitus, Hypertension Additional Past Medical History / Comment(s): hemorrhoids,polyps,rosacea- rhinophyna, dermatitis,prosthesis lt eye History of Any Multi-Drug Resistant Organisms: None Reported Past Surgical History: Orthopedic Surgery, Pacemaker Additional Past Surgical History / Comment(s): lt eye surgery , L knee Past Anesthesia/Blood Transfusion Reactions: No Reported Reaction Type of Cardiac Device: Permanent Pacemaker Device Placement Date:: Dec Past Psychological History: Anxiety Past Alcohol Use History: None Reported Past Drug Use History: None Reported - Past Family History Brother(s) Family Medical History: AFIB, Cancer, Diabetes Mellitus, Myocardial Infarction ([place]), Sleep Apnea/CPAP/BIPAP Additional Family Medical History / Comment(s): Esophageal cancer, liver cancer, prostate cancer. Father Family Medical History: CVA/TIA Additional Family Medical History / Comment(s): at age 88. Mother Family Medical History: No Reported History Additional Family Medical History / Comment(s): . Sister(s) Family Medical History: Cancer, Diabetes Mellitus Additional Family Medical History / Comment(s): Breast cancer. General Exam Limitations: no limitations General appearance: alert, in no apparent distress Head exam: Present: atraumatic, normocephalic Eye exam: Present: normal appearance, PERRL ENT exam: Present: normal exam Neck exam: Present: normal inspection. Absent: tenderness, meningismus Respiratory exam: Present: normal lung sounds bilaterally. Absent: respiratory distress, wheezes Cardiovascular Exam: Present: regular rate, normal rhythm GI/Abdominal exam: Present: soft. Absent: distended, tenderness, guarding, rebound Extremities exam: Present: normal inspection, normal capillary refill. Absent: pedal edema, calf tenderness Neurological exam: Present: alert, oriented X3 Psychiatric exam: Present: normal affect, normal mood Skin exam: Present: warm, dry, intact. Absent: cyanosis, diaphoretic Course Vital Signs 04/21/20 22:35 Temperature 98.5 F Pulse Rate 96 Respiratory 16 Rate Blood Pressure 166/85 O2 Sat by Pulse 100 Oximetry EKG Findings - EKG Comments: EKG Findings:: EKG: Ventricular paced rhythm, rate 68, QRS duration 176, QTC 455, with PVC Medical Decision Making - Medical Decision Making 74-year-old male with abnormal outpatient lab testing. Potassium was 5.9 on outpatient testing, repeat is 5.4. Patient is in a paced rhythm. He has no complaints, he did mention that he had some diarrhea. He will drink plenty fluids. He will follow-up for redraw on Monday. - Lab Data Result diagrams: 04/21/20 23:22 04/21/20 23:22 Lab Results 04/21/20 04/21/20 Range/Units 23:22 23:22 WBC 6.6 (3.8-10.6) k/uL RBC 4.13 L (4.30-5.90) m/uL Hgb 13.1 (13.0-17.5) gm/dL Hct 40.0 (39.0-53.0) % MCV 96.9 (80.0-100.0) fL MCH 31.8 (25.0-35.0) pg MCHC 32.8 (31.0-37.0) g/dL RDW 13.4 (11.5-15.5) % Plt Count 236 (150-450) k/uL MPV 7.1 Neutrophils % 67 % Lymphocytes % 17 % Monocytes % 7 % Eosinophils % 5 % Basophils % 1 % Neutrophils # 4.5 (1.3-7.7) k/uL Lymphocytes # 1.1 (1.0-4.8) k/uL Monocytes # 0.5 (0-1.0) k/uL Eosinophils # 0.3 (0-0.7) k/uL Basophils # 0.1 (0-0.2) k/uL Sodium 139 (137-145) mmol/L Potassium 5.4 H (3.5-5.1) mmol/L Chloride 103 (98-107) mmol/L Carbon Dioxide 29 (22-30) mmol/L Anion Gap 7 mmol/L BUN 16 (9-20) mg/dL Creatinine 0.93 (0.66-1.25) mg/dL Est GFR (CKD-EPI)AfAm >90 (>60 ml/min/1.73 sqM) Est GFR (CKD-EPI)NonAf 81 (>60 ml/min/1.73 sqM) Glucose 122 H (74-99) mg/dL Calcium 9.8 (8.4-10.2) mg/dL Magnesium 1.6 (1.6-2.3) mg/dL Total Bilirubin 0.6 (0.2-1.3) mg/dL AST 40 (17-59) U/L ALT 34 (4-49) U/L Alkaline Phosphatase 68 (38-126) U/L Total Protein 7.7 (6.3-8.2) g/dL Albumin 4.5 (3.5-5.0) g/dL Disposition Clinical Impression: Hyperkalemia Disposition: HOME SELF-CARE Condition: Fair Instructions (If sedation given, give patient instructions): Hyperkalemia (ED) Is patient prescribed a controlled substance at d/c from ED?: No Referrals: Zahra Henry MD [Primary Care Provider] - 1-2 days Time of Disposition: 00:18
[2020-04-21 23:45] LABS: Basophils # (A) 0.1 k/uL (0-0.2); Basophils % (A) 1 %; Eosinophils # (A) 0.3 k/uL (0-0.7); Eosinophils % (A) 5 %; HGB 13.1 gm/dL (13.0-17.5); Lymphocytes # (A) 1.1 k/uL (1.0-4.8); Lymphocytes % (A) 17 %; MCH 31.8 pg (25.0-35.0); MCHC 32.8 g/dL (31.0-37.0); MCV 96.9 fL (80.0-100.0); Mean Platelet Volume 7.1; Monocytes # (A) 0.5 k/uL (0-1.0); Monocytes % (A) 7 %; Neutrophils # (A) 4.5 k/uL (1.3-7.7); Neutrophils % (A) 67 %; Platelet Count 236 k/uL (150-450); RBC 4.13 m/uL (4.30-5.90); RDW 13.4 % (11.5-15.5); WBC 6.6 k/uL (3.8-10.6)
[2020-04-22 00:12] LABS: ALT 34 U/L (4-49); AST 40 U/L (17-59); African American GFR (CKD) >90 (>60 ml/min/1.73 sqM); Albumin 4.5 g/dL (3.5-5.0); Alkaline Phosphatase 68 U/L (38-126); Anion Gap 7 mmol/L; Blood Urea Nitrogen 16 mg/dL (9-20); Calcium 9.8 mg/dL (8.4-10.2); Carbon Dioxide 29 mmol/L (22-30); Chloride 103 mmol/L (98-107); Glucose 122 mg/dL (74-99); Magnesium 1.6 mg/dL (1.6-2.3); Non-African American GFR(CKD) 81 (>60 ml/min/1.73 sqM); Potassium 5.4 mmol/L (3.5-5.1); Sodium 139 mmol/L (137-145); Total Bilirubin 0.6 mg/dL (0.2-1.3); Total Protein 7.7 g/dL (6.3-8.2)
[2020-04-22 00:36] VITALS: BP 148/87; PULSE 80; RESP 18; TEMP 98.1
== END 2020-04-22 00:36 | disposition home or self-care (01) ==
LOC: EC 22:29
DX: E87.5 Hyperkalemia (principal); R19.7 Diarrhea, unspecified; I10 Essential (primary) hypertension; E11.9 Type 2 diabetes mellitus without complications; I48.91 Unspecified atrial fibrillation; F41.9 Anxiety disorder, unspecified; Z79.899 Other long term (current) drug therapy; Z79.84 Long term (current) use of oral hypoglycemic drugs; Z88.0 Allergy status to penicillin; Z91.030 Bee allergy status
CPT/HCPCS: 36415; 80053; 83735; 85025; 93005; 99285

== ENCOUNTER 2020-06-16 05:56 | Day surgery (SDC) | payer MEDICARE, OTHER ==
[2020-06-10 13:44] VITALS: BMI 44.1
[2020-06-16] MEDS ORDERED: SODIUM CHLORIDE 0.9% 1,000 ML IV SCH ×2 (06:02)
[2020-06-16] MEDS ORDERED: SODIUM CHLORIDE 0.9% 500 ML 500 ML IV ONE (06:13)
[2020-06-16 06:28] LABS: Glucose,Whole Blood 140 mg/dL (75-99)
[2020-06-16 06:30] VITALS: RESP 16; TEMP 97
[2020-06-16] MEDS ORDERED: CLINDAMYCIN 900 MG in DEXTROSE 5% IN WATER 50 ML IVPB PRN ×2 (07:00)
[2020-06-16] MEDS ORDERED: CLINDAMYCIN 600 MG in SODIUM CHLORIDE 0.9% 250 ML IRRIGATION PRN (07:00)
[2020-06-16] MEDS ORDERED: diphenhydrAMINE 50 MG/ML 1 ML VIAL ONE (07:11)
[2020-06-16] MEDS ORDERED: PROPOFOL 10 MG/ML 20 ML VIAL IV ONE (07:11)
[2020-06-16] MEDS ORDERED: fentaNYL (PF) 50 MCG/ML 2 ML AMP ONE (07:11)
[2020-06-16] MEDS ORDERED: MIDAZOLAM 2 MG/2 ML VIAL ONE (07:11)
[2020-06-16] MEDS ORDERED: LIDOCAINE 1% INJ 10MG/ML (20 ML MDV) ONE (07:43)
[2020-06-16] MEDS: IOPAMIDOL-250 50ML BTL IV ONE ×2 (07:45→08:55)
[2020-06-16] MEDS ORDERED: LIDOCAINE 1% INJ 10MG/ML (20 ML MDV) IV ONE (08:08)
[2020-06-16] MEDS ORDERED: LIDOCAINE 1% INJ 10MG/ML (20 ML MDV) SQ ONE (08:18)
[2020-06-16] MEDS ORDERED: ACETAMINOPHEN TAB 325 MG TAB PO PRN (10:03)
--- NOTE | 2020-06-16 10:20 | P.PCN ---
Preoperative Diagnosis: Extended procedure, increased procedure services This is a long procedure on account of the patient's body habitus and increased BMI A subfascial pocket was made and extended caudally and inferiorly to accommodate the longer leads and the new generator partial capsulectomy was performed Subclavian venous access was difficult since the subclavian artery in the subclavian vein lay one on top of each other Multiple attempts were made the micropuncture needle and finally was successfully able to access the left axillary vein An advantage wire was placed in the subclavian vein down into the IVC to allow for venoplasty Following that serial dilation of the veins was performed And 9 1/2-Italian sheath was then placed in the subclavian vein Coronary sinus was accessed and he had an anterior/lateral vein and 2 anterolateral veins We attempted to access the anterolateral veins with the injury plasty via and the sheaths would not get directed into these veins Multiple attempts were made An anterior vein was accessed using a subselective sheath with dilator. The advantage wire was placed distally into this vein The pacing electrodes were a very lateral position and the LV lead was placed here. Thresholds were high, between 3 and 4 V at 0.5 ms, but the lead is very stable. The in a guiding sheath and sheaths were then slit successfully.
--- NOTE | 2020-06-16 10:24 | P.PCN ---
Preoperative Diagnosis: Electrical cardioversion for persistent atrial fibrillation At the end of the procedure, 360 J biphasic shock in the AP configuration was successful in converting the patient to sinus rhythm Pacemaker was programmed to DDDR mode 60 to 130 bpm Biventricular pacing Patient tolerated the procedure well without any acute complications Plan Continue sotalol 80 mg twice daily in addition to metoprolol Continue Xarelto
[2020-06-16 10:34] LABS: Glucose,Whole Blood 108 mg/dL (75-99)
[2020-06-16 12:48] VITALS: BP 112/60; PULSE 60
[2020-06-16] MEDS ORDERED: ACETAMINOPHEN IV (For NPO) 1,000 MG in EMPTY BAG 1 BAG IVPB ONE (13:00)
[2020-06-16] MEDS ORDERED: CLINDAMYCIN 900 MG in DEXTROSE 5% IN WATER 50 ML IVPB SCH ×2 (14:00)
--- NOTE | 2020-06-16 14:20 | CE ---
CARDIAC ELECTROPHYSIOLOGY REPORT Torie Bowles is a 74-year-old male patient with a history of persistent atrial fibrillation and cardiomyopathy with ejection fraction 45% with high percentage of RV pacing. He has a dual-chamber pacemaker and he is brought in for an upgrade to a biventricular pacemaker. Patient was brought to the EP lab in a fasting state. Written informed consent was obtained prior to the procedure. The left shoulder area was prepped and draped as per protocol and 1% lidocaine was used for local anesthesia. An incision was made directly over the previous surgical site and carried down to the generator. The generator was explanted. Partial capsulectomy was performed. Subfascial pocket was made and extended inferiorly, caudally and medially to accommodate the new lead and the generator. The access was obtained in the left axillary vein. This was a difficult access since the artery and the vein were one on top of another. However, this access was successfully obtained in the axillary vein and venoplasty was performed over the Advantage wire. After serial dilatations, 9.5 Syriac sheath was placed in this vein. Following this, the coronary sinus sheath and catheter were placed. Coronary sinus was accessed and venogram was performed. The coronary sinus veins included 2 lateral veins and an anterolateral vein. It was difficult to access the anterolateral veins, but the anterior vein accessed and the wire went quite laterally. The lead would not travel pass an area of stenosis. Therefore the lead was removed and a sheath was placed and an Advantage wire was placed through this. The anterior vein was accessed and the wire tip was positioned laterally. The inner sheaths were placed into this vein. The vein fell across the area of stenosis and the lead was placed through this in the sheath. Once this lead was placed, the inner sheath and the upper sheath were removed. The lead was stable. The thresholds were high in between 3-4 V at 0.5 millisecond, but ultimately excellent thresholds were obtained in various configurations, especially pole 3 to can was 1.5 V at 0.4 milliseconds and pole 4 to can was 1.5 V at 0.4 milliseconds. No diaphragmatic stimulation was noted. Lead was secured. The old generator was explanted. The new generator was implanted. The new generator was [employer] Quad [employer], model number [id number], serial number [id number]. The leads and generator were placed in the subfascial pocket. The wound was closed in 3 layers and dressed per protocol. Following this, electrical cardioversion was performed and the device was programmed to DDDR at 60-130 ppm with an AV delay of 184/210 milliseconds. The patient does have an underlying rhythm, but with a very long LA interval of greater than 260 to 280 milliseconds. PLAN: 1. Continue anticoagulation. 2. Add sotalol 80 mg twice daily. 3. Continue metoprolol. 4. Reassessment of LV function in about 3 months. 5. We will see him in device clinic in about a week. MMODL / IJN: [id number] /
[2020-06-16] MEDS ORDERED: RIVAROXABAN 20 MG TAB PO SCH (21:00)
[2020-06-17] MEDS ORDERED: PANTOPRAZOLE 40 MG TABLET PO SCH (07:30)
[2020-06-18] MEDS ORDERED: metFORMIN 500 MG TAB PO SCH (07:30)
== END 2020-06-16 13:26 | disposition home or self-care (01) ==
LOC: CATHEP 05:56
PROVIDERS: ATTEND Internal Medicine Clinical Cardiac Electrophysiology
DX: I48.19 Other persistent atrial fibrillation (principal); I42.8 Other cardiomyopathies; Z95.0 Presence of cardiac pacemaker; I11.0 Hypertensive heart disease with heart failure; Z87.891 Personal history of nicotine dependence; I50.22 Chronic systolic (congestive) heart failure; K21.9 Gastro-esophageal reflux disease without esophagitis; E11.9 Type 2 diabetes mellitus without complications; G47.33 Obstructive sleep apnea (adult) (pediatric); Z79.01 Long term (current) use of anticoagulants; Z79.84 Long term (current) use of oral hypoglycemic drugs; Z79.899 Other long term (current) drug therapy; Z91.030 Bee allergy status; Z88.0 Allergy status to penicillin; Z91.038 Other insect allergy status
CPT/HCPCS: 33225; 33229; C1769 ×4; C1892; C1730; C1887; C2621; C1900; J2250; J1200; J2001; J3010; J0131; J2704; Q9966; 33214

== ENCOUNTER 2020-12-03 11:04 | Emergency (ER) | payer MEDICARE, OTHER ==
[2020-12-03 11:11] VITALS: RESP 16; TEMP 99.1
[2020-12-03] MEDS ORDERED: SODIUM CHLORIDE 0.9% 500 ML 500 ML IV STA (11:30)
[2020-12-03] MEDS ORDERED: MORPHINE SULFATE 2 MG/ML SYRINGE IVP STA (11:30)
--- NOTE | 2020-12-03 11:37 | ED ---
Male Urogenital HPI - General Chief complaint: Urogenital Stated complaint: UTI Source: patient, RN notes reviewed, old records reviewed Mode of arrival: wheelchair Limitations: no limitations - History of Present Illness Initial comments: 75-year-old obese white male, alert and oriented 4, presents to the emergency room with dysuria for the past 2 weeks. Patient states that he was prescribed nitrofurantoin yesterday and has had one dose. He states that he has not been able to get any sleep due to the discomfort. Patient states he seen his primary care doctor on December 01 and his PSA level was elevated. Patient states that the pain does go into his back and he is unable to get comfortable but denies any fevers, nausea, vomiting or diarrhea. He denies any hematuria or hematochezia. Patient states that he has not had a good bowel movement in over 2 weeks. Patient has a medical history of atrial fibrillation, pacemaker, diabetes, hypertension. He has a right eye prosthesis. He is a former smoker and quit 2008. MD Complaint: dysuria -: week(s) (2) Location: abdomen (Suprapubic) Radiation: other (Lower back) Severity scale (1-10): 10 Quality: aching Consistency: constant Improves with: none Worsens with: movement new medication (nitrofurantoin yesterday) Reports: other (Loss of appetite; PSA elevated December 01) - Related Data Home Medications Medication Instructions Recorded Confirmed ALPRAZolam [ALPRAZolam XR] 0.5 mg PO BID 12/08/14 06/16/20 Atorvastatin [Lipitor] 20 mg PO HS 12/08/14 06/16/20 EPINEPHrine (Auto Inject) [Epipen] 0.3 mg IM ONCE PRN 12/08/14 06/10/20 Finacea 1 applicate TOPICAL DAILY PRN 12/08/14 06/16/20 Metoprolol Tartrate [Lopressor] 50 mg PO BID 12/08/14 06/16/20 Multivitamins, Thera [Multivitamin 1 tab PO DAILY@1200 12/08/14 06/16/20 (formulary)] cycloSPORINE [Restasis] 1 applicator BOTH EYES BID 12/08/14 06/16/20 metFORMIN HCL 1,000 mg PO BID 12/08/14 06/16/20 Ketoconazole 2% Shampoo [Nizoral] 1 applic TOPICAL DAILY 10/11/17 06/16/20 Ammonium Lactate Cream [Lac-Hydrin 1 applic TOPICAL DAILY 11/07/18 06/16/20 12% Cream] Dextran 70/Hypromellose [Genteal 1 drop BOTH EYES DAILY 11/07/18 06/16/20 Tears 0.1%-0.3% Drop] Fluocinonide 0.05% [Lidex 0.05% 1 applic TOPICAL DAILY 11/07/18 06/16/20 cream] lisinopriL [Zestril] 10 mg PO HS 11/07/18 06/16/20 Carboxymethylcellulose Sodium 1 drop BOTH EYES QID 11/10/18 06/16/20 [Refresh Tears] Ascorbic Acid [Vitamin C] 1,000 mg PO DAILY 06/10/20 06/16/20 Clobetasol Propionate [Impoyz 1 applic TOPICAL DAILY 06/10/20 06/16/20 0.25%] Hydrocortisone Cream 1 applic TOPICAL DAILY PRN 06/10/20 06/16/20 [Hydrocortisone 2.5% Cream] Nystatin 100,000 Unit/gm Powd 1 applic TOPICAL BID PRN 06/10/20 06/16/20 [Mycostatin Powder] SILVER sulfADIAZINE CREAM 1 applic TOPICAL HS 06/10/20 06/16/20 [Silvadene Cream] Previous Rx's Medication Instructions Recorded Ferrous Sulfate [Feosol] 325 mg PO BID #60 tab 10/13/17 Omeprazole [PriLOSEC] 40 mg PO AC-BRKFST #30 capsule. 10/13/17 Rivaroxaban [Xarelto] 20 mg PO HS #30 tab 10/13/17 Sotalol [Betapace] 80 mg PO BID #180 tablet 06/16/20 Allergies Allergy/AdvReac Type Severity Reaction Status Date / Time Penicillins Allergy Itching Verified 12/03/20 11:05 venom-honey bee Allergy Anaphylaxis Verified 12/03/20 11:05 [bee venom (honey bee)] Review of Systems ROS Statement: Those systems with pertinent positive or pertinent negative responses have been documented in the HPI. ROS Other: All systems not noted in ROS Statement are negative. Past Medical History Past Medical History: Atrial Fibrillation, Diabetes Mellitus, Hypertension Additional Past Medical History / Comment(s): hemorrhoids,rosacea-rhinophyna, dermatitis. SEE DR SNYDER'S HISTORY AND PHYSICAL FOR CARDIAC HISTORY, BLIND LE FT EYE-OCULAR PROSTHESIS ,ROSACEA History of Any Multi-Drug Resistant Organisms: None Reported Past Surgical History: Orthopedic Surgery, Pacemaker Additional Past Surgical History / Comment(s): lt eye surgery , L knee Past Anesthesia/Blood Transfusion Reactions: No Reported Reaction Type of Cardiac Device: Permanent Pacemaker Device Placement Date:: Dec Past Psychological History: Anxiety Smoking Status: Former smoker Past Alcohol Use History: None Reported Past Drug Use History: None Reported - Past Family History Brother(s) Family Medical History: Cancer Additional Family Medical History / Comment(s): Esophageal cancer, liver cancer, prostate cancer. Father Family Medical History: CVA/TIA Additional Family Medical History / Comment(s): at age 88. Mother Family Medical History: No Reported History, Cancer Additional Family Medical History / Comment(s): LUNG CANCER Sister(s) Family Medical History: Cancer, Diabetes Mellitus Additional Family Medical History / Comment(s): Breast cancer. General Exam Limitations: no limitations General appearance: alert, in no apparent distress Head exam: Present: atraumatic, normocephalic, normal inspection Eye exam: Present: normal appearance, PERRL, EOMI, other (Right eye prosthesis). Absent: scleral icterus, conjunctival injection, periorbital swelling ENT exam: Present: normal exam, normal oropharynx, mucous membranes moist Neck exam: Present: normal inspection, full ROM. Absent: tenderness, meningismus, lymphadenopathy, thyromegaly Respiratory exam: Present: normal lung sounds bilaterally. Absent: respiratory distress, wheezes, rales, rhonchi, stridor, chest wall tenderness, accessory muscle use, decreased breath sounds, prolonged expiratory Cardiovascular Exam: Present: regular rate, normal rhythm, normal heart sounds. Absent: systolic murmur, diastolic murmur, rubs, gallop, clicks GI/Abdominal exam: Present: soft, tenderness (Suprapubic), normal bowel sounds. Absent: distended, guarding, rebound, rigid Back exam: Present: normal inspection, full ROM, paraspinal tenderness (Lumbar sacral spine). Absent: tenderness, CVA tenderness (R), CVA tenderness (L), muscle spasm, vertebral tenderness, rash noted Neurological exam: Present: alert, oriented X3, CN II-XII intact Psychiatric exam: Present: normal affect, normal mood Skin exam: Present: warm, dry, intact, normal color. Absent: rash, cyanosis, diaphoretic, petechiae, pallor Course Vital Signs 12/03/20 11:06 Temperature 99.1 F Pulse Rate 101 H Respiratory 16 Rate Blood Pressure 118/71 O2 Sat by Pulse 98 Oximetry Medical Decision Making - Medical Decision Making WBC count is 12.5, hemoglobin and hematocrit is 12 and 36 respectively. BUN is 50 and creatinine is 1.58 is elevated from 1.1. glucose is 200. UA is dark orange as patient is taking [id number] antispasmodic. Is positive for blood, large leukocyte esterase, 140s wbc's with many bacteria. Patient was diagnosed with a UTI and put on Macrobid but has only had one dose. Patient given 1 g of Rocephin IV. KUB x-ray shows no suspicious calcifications. This is likely urinary retention due to enlarged prostate and will be referred to urology. Patient will be directed to return to the emergency room if increasing pain, fevers or nausea and vomiting. case discussed with Dr. Moncada. - Lab Data Result diagrams: 12/03/20 11:44 12/03/20 11:44 Lab Results 12/03/20 12/03/20 12/03/20 Range/Units 11:44 11:44 11:44 WBC 12.5 H (3.8-10.6) k/uL RBC 3.91 L (4.30-5.90) m/uL Hgb 12.7 L (13.0-17.5) gm/dL Hct 36.9 L (39.0-53.0) % MCV 94.4 (80.0-100.0) fL MCH 32.5 (25.0-35.0) pg MCHC 34.4 (31.0-37.0) g/dL RDW 13.4 (11.5-15.5) % Plt Count 168 (150-450) k/uL MPV 7.3 Neutrophils % 89 % Lymphocytes % 3 % Monocytes % 6 % Eosinophils % 1 % Basophils % 0 % Neutrophils # 11.1 H (1.3-7.7) k/uL Lymphocytes # 0.4 L (1.0-4.8) k/uL Monocytes # 0.8 (0-1.0) k/uL Eosinophils # 0.1 (0-0.7) k/uL Basophils # 0.0 (0-0.2) k/uL PT 14.3 H (9.0-12.0) sec INR 1.4 H (<1.2) APTT 29.9 (22.0-30.0) sec Sodium (137-145) mmol/L Potassium (3.5-5.1) mmol/L Chloride (98-107) mmol/L Carbon Dioxide (22-30) mmol/L Anion Gap mmol/L BUN (9-20) mg/dL Creatinine (0.66-1.25) mg/dL Est GFR (CKD-EPI)AfAm (>60 ml/min/1.73 sqM) Est GFR (CKD-EPI)NonAf (>60 ml/min/1.73 sqM) Glucose (74-99) mg/dL Calcium (8.4-10.2) mg/dL Total Bilirubin (0.2-1.3) mg/dL AST (17-59) U/L ALT (4-49) U/L Alkaline Phosphatase (38-126) U/L Total Protein (6.3-8.2) g/dL Albumin (3.5-5.0) g/dL Amylase (30-110) U/L Lipase (23-300) U/L Urine Color Dark [place] Urine Appearance Cloudy (Clear) Urine pH 5.5 (5.0-8.0) Ur Specific [place] 1.017 (1.001-1.035) Urine Protein 1+ H (Negative) Urine Glucose (UA) Negative (Negative) Urine Ketones Negative (Negative) Urine Blood Large H (Negative) Urine Nitrite Positive (Negative) Urine Bilirubin 1+ H (Negative) Urine Urobilinogen 3.0 (<2.0) mg/dL Ur Leukocyte Esterase Large H (Negative) Urine RBC 51 H (0-5) /hpf Urine WBC 148 H (0-5) /hpf Urine WBC Clumps Occasional H (None) /hpf Ur Squamous Epith Cells <1 (0-4) /hpf Urine Bacteria Many H (None) /hpf Hyaline Casts 10 H (0-2) /lpf Urine Mucus Occasional H (None) /hpf 12/03/20 Range/Units 11:44 WBC (3.8-10.6) k/uL RBC (4.30-5.90) m/uL Hgb (13.0-17.5) gm/dL Hct (39.0-53.0) % MCV (80.0-100.0) fL MCH (25.0-35.0) pg MCHC (31.0-37.0) g/dL RDW (11.5-15.5) % Plt Count (150-450) k/uL MPV Neutrophils % % Lymphocytes % % Monocytes % % Eosinophils % % Basophils % % Neutrophils # (1.3-7.7) k/uL Lymphocytes # (1.0-4.8) k/uL Monocytes # (0-1.0) k/uL Eosinophils # (0-0.7) k/uL Basophils # (0-0.2) k/uL PT (9.0-12.0) sec INR (<1.2) APTT (22.0-30.0) sec Sodium 134 L (137-145) mmol/L Potassium 4.3 (3.5-5.1) mmol/L Chloride 98 (98-107) mmol/L Carbon Dioxide 20 L (22-30) mmol/L Anion Gap 16 mmol/L BUN 50 H (9-20) mg/dL Creatinine 1.58 H (0.66-1.25) mg/dL Est GFR (CKD-EPI)AfAm 49 (>60 ml/min/1.73 sqM) Est GFR (CKD-EPI)NonAf 42 (>60 ml/min/1.73 sqM) Glucose 200 H (74-99) mg/dL Calcium 9.3 (8.4-10.2) mg/dL Total Bilirubin 1.1 (0.2-1.3) mg/dL AST 40 (17-59) U/L ALT 27 (4-49) U/L Alkaline Phosphatase 88 (38-126) U/L Total Protein 7.0 (6.3-8.2) g/dL Albumin 4.2 (3.5-5.0) g/dL Amylase 46 (30-110) U/L Lipase 128 (23-300) U/L Urine Color Urine Appearance (Clear) Urine pH (5.0-8.0) Ur Specific [place] (1.001-1.035) Urine Protein (Negative) Urine Glucose (UA) (Negative) Urine Ketones (Negative) Urine Blood (Negative) Urine Nitrite (Negative) Urine Bilirubin (Negative) Urine Urobilinogen (<2.0) mg/dL Ur Leukocyte Esterase (Negative) Urine RBC (0-5) /hpf Urine WBC (0-5) /hpf Urine WBC Clumps (None) /hpf Ur Squamous Epith Cells (0-4) /hpf Urine Bacteria (None) /hpf Hyaline Casts (0-2) /lpf Urine Mucus (None) /hpf Disposition Clinical Impression: Urinary retention, Urinary tract infection Disposition: HOME SELF-CARE Condition: Fair Instructions (If sedation given, give patient instructions): Urinary Tract Infection in Men (ED) Additional Instructions: Continue taking your Macrobid as previously prescribed by her doctor. Follow-up with urology this week. Return to the emergency room with increasing pain, fevers or nausea and vomiting. Is patient prescribed a controlled substance at d/c from ED?: No Referrals: Zahra Henry MD [Primary Care Provider] - 1-2 days Chago Thorpe MD [STAFF PHYSICIAN] - 1-2 days Time of Disposition: 12:55
[2020-12-03] MEDS ORDERED: LIDOCAINE URO-JET JELLY 2% 5 ML KIT URETHRAL ONE (11:48)
[2020-12-03 11:55] LABS: Basophils % (A) 0 %; Eosinophils # (A) 0.1 k/uL (0-0.7); Eosinophils % (A) 1 %; HCT 36.9 % (39.0-53.0); HGB 12.7 gm/dL (13.0-17.5); Lymphocytes # (A) 0.4 k/uL (1.0-4.8); Lymphocytes % (A) 3 %; MCH 32.5 pg (25.0-35.0); MCHC 34.4 g/dL (31.0-37.0); MCV 94.4 fL (80.0-100.0); Mean Platelet Volume 7.3; Monocytes # (A) 0.8 k/uL (0-1.0); Monocytes % (A) 6 %; Neutrophils # (A) 11.1 k/uL (1.3-7.7); Neutrophils % (A) 89 %; Platelet Count 168 k/uL (150-450); RBC 3.91 m/uL (4.30-5.90); RDW 13.4 % (11.5-15.5); WBC 12.5 k/uL (3.8-10.6)
[2020-12-03 11:59] LABS: Appearance,Urine Cloudy (Clear); Bacteria,Urine Many /hpf; Bilirubin,Urine 1+ (Negative); Blood,Urine Large (Negative); Color,Urine Dark Orange; Glucose,Urine (UA) Negative (Negative); Hyaline Casts,Urine 10 /lpf (0-2); Ketones,Urine Negative (Negative); Leukocyte Esterase,Urine Large (Negative); Mucus,Urine Occasional /hpf; Nitrite,Urine Positive (Negative); PH, Urine 5.5 (5.0-8.0); Protein,Urine 1+ (Negative); RBC,Urine 51 /hpf (0-5); Specific Gravity,Urine 1.017 (1.001-1.035); Squamous Epithelial Cell,Urine <1 /hpf (0-4); WBC,Urine 148 /hpf (0-5)
[2020-12-03 12:03] LABS: INR 1.4 (<1.2); Partial Thromboplastin Time 29.9 sec (22.0-30.0); Prothrombin Time 14.3 sec (9.0-12.0)
[2020-12-03 12:13] LABS: Albumin 4.2 g/dL (3.5-5.0); Calcium 9.3 mg/dL (8.4-10.2); Potassium 4.3 mmol/L (3.5-5.1); Total Bilirubin 1.1 mg/dL (0.2-1.3)
--- NOTE | 2020-12-03 12:14 | XR ---
EXAMINATION TYPE: XR KUB DATE OF EXAM: 12/03/2020 Comparison: None Clinical History: 75 year-old male abdominal pain Findings: 3 cardiac pacer leads noted. Lung bases are clear. No evidence for free intraperitoneal air. Scattered colonic air without significant stool burden. Some prominent small bowel loops in left side of the abdomen measure up to 2.3 cm. No suspicious calcifications seen. A 3.8 x 1.5 cm chondroid lesion proximal right femoral shaft, like ly enchondroma. Impression: Nonspecific, overall nonobstructive bowel gas pattern. Some prominent but nondilated small bowel loop s in the left side of the abdomen could represent a regional ileus or enteritis.
[2020-12-03] MEDS ORDERED: ACET/COD 300 MG/30 MG STARTER PACK 6 TAB BTL PO STA (12:46)
[2020-12-03] MEDS ORDERED: cefTRIAXone IN SWFI 1,000 MG/10 ML SYRINGE IVP STA (13:05)
[2020-12-03 13:25] VITALS: BP 136/79; PULSE 74
== END 2020-12-03 13:33 | disposition home or self-care (01) ==
LOC: EC 11:04
DX: N39.0 Urinary tract infection, site not specified (principal); R33.9 Retention of urine, unspecified; I10 Essential (primary) hypertension; E11.9 Type 2 diabetes mellitus without complications; E66.9 Obesity, unspecified; I48.91 Unspecified atrial fibrillation; H54.62 Unqualified visual loss, left eye, normal vision right eye; F41.9 Anxiety disorder, unspecified; Z87.891 Personal history of nicotine dependence; Z88.0 Allergy status to penicillin; Z79.84 Long term (current) use of oral hypoglycemic drugs; Z68.41 Body mass index [BMI] 40.0-44.9, adult
CPT/HCPCS: 36415; 80053; 82150; 83690; 85025; 85610; 85730; 81001; 87086; 74018; 99283; 96374; 96375; 96361 ×2; J0696; J2270

== ENCOUNTER 2020-12-13 03:44 | Emergency (ER) | payer MEDICARE, OTHER ==
--- NOTE | 2020-12-13 03:56 | ED ---
Male Urogenital HPI - General Stated complaint: Urogenital Time Seen by Provider: 12/13/20 03:55 Source: RN notes reviewed, old records reviewed Limitations: no limitations - History of Present Illness Initial comments: This is a 75-year-old male to the ER for evaluation patient presents for evaluation regards to severe abdominal pain pelvic pain and testicular pain. Recently he did trial of indwelling Theodore removal the patient has had no urinary output and pain is significantly been increasing. Patient does follow-up with urology next week MD Complaint: testicle pain -: days(s) Location: abdomen Radiation: none Severity: severe Severity scale (1-10): 9 Quality: sharp Consistency: constant Improves with: none Worsens with: urination indwelling catheter Reports: denies other symptoms - Related Data Home Medications Medication Instructions Recorded Confirmed ALPRAZolam [ALPRAZolam XR] 0.5 mg PO BID 12/08/14 06/16/20 Atorvastatin [Lipitor] 20 mg PO HS 12/08/14 06/16/20 EPINEPHrine (Auto Inject) [Epipen] 0.3 mg IM ONCE PRN 12/08/14 06/10/20 Finacea 1 applicate TOPICAL DAILY PRN 12/08/14 06/16/20 Metoprolol Tartrate [Lopressor] 50 mg PO BID 12/08/14 06/16/20 Multivitamins, Thera [Multivitamin 1 tab PO DAILY@1200 12/08/14 06/16/20 (formulary)] cycloSPORINE [Restasis] 1 applicator BOTH EYES BID 12/08/14 06/16/20 metFORMIN HCL 1,000 mg PO BID 12/08/14 06/16/20 Ketoconazole 2% Shampoo [Nizoral] 1 applic TOPICAL DAILY 10/11/17 06/16/20 Ammonium Lactate Cream [Lac-Hydrin 1 applic TOPICAL DAILY 11/07/18 06/16/20 12% Cream] Dextran 70/Hypromellose [Genteal 1 drop BOTH EYES DAILY 11/07/18 06/16/20 Tears 0.1%-0.3% Drop] Fluocinonide 0.05% [Lidex 0.05% 1 applic TOPICAL DAILY 11/07/18 06/16/20 cream] lisinopriL [Zestril] 10 mg PO HS 11/07/18 06/16/20 Carboxymethylcellulose Sodium 1 drop BOTH EYES QID 11/10/18 06/16/20 [Refresh Tears] Ascorbic Acid [Vitamin C] 1,000 mg PO DAILY 06/10/20 06/16/20 Clobetasol Propionate [Impoyz 1 applic TOPICAL DAILY 06/10/20 06/16/20 0.25%] Hydrocortisone Cream 1 applic TOPICAL DAILY PRN 06/10/20 06/16/20 [Hydrocortisone 2.5% Cream] Nystatin 100,000 Unit/gm Powd 1 applic TOPICAL BID PRN 06/10/20 06/16/20 [Mycostatin Powder] SILVER sulfADIAZINE CREAM 1 applic TOPICAL HS 06/10/20 06/16/20 [Silvadene Cream] Previous Rx's Medication Instructions Recorded Ferrous Sulfate [Feosol] 325 mg PO BID #60 tab 10/13/17 Omeprazole [PriLOSEC] 40 mg PO AC-BRKFST #30 capsule. 10/13/17 Rivaroxaban [Xarelto] 20 mg PO HS #30 tab 10/13/17 Sotalol [Betapace] 80 mg PO BID #180 tablet 06/16/20 Allergies Allergy/AdvReac Type Severity Reaction Status Date / Time Penicillins Allergy Itching Verified 12/13/20 03:57 venom-honey bee Allergy Anaphylaxis Verified 12/13/20 03:57 [bee venom (honey bee)] Review of Systems ROS Statement: Those systems with pertinent positive or pertinent negative responses have been documented in the HPI. ROS Other: All systems not noted in ROS Statement are negative. Past Medical History Past Medical History: Atrial Fibrillation, Diabetes Mellitus, Hypertension Additional Past Medical History / Comment(s): hemorrhoids,rosacea-rhinophyna, dermatitis. SEE DR SNYDER'S HISTORY AND PHYSICAL FOR CARDIAC HISTORY, BLIND LEFT EYE-OCULAR PROSTHESIS ,ROSACEA History of Any Multi-Drug Resistant Organisms: None Reported Past Surgical History: Orthopedic Surgery, Pacemaker Additional Past Surgical History / Comment(s): lt eye surgery , L knee Past Anesthesia/Blood Transfusion Reactions: No Reported Reaction Type of Cardiac Device: Permanent Pacemaker Device Placement Date:: Dec Past Psychological History: Anxiety Smoking Status: Former smoker Past Alcohol Use History: None Reported Past Drug Use History: None Reported - Past Family History Brother(s) Family Medical History: Cancer Additional Family Medical History / Comment(s): Esophageal cancer, liver cancer, prostate cancer. Father Family Medical History: CVA/TIA Additional Family Medical History / Comment(s): at age 88. Mother Family Medical History: No Reported History, Cancer Additional Family Medical History / Comment(s): LUNG CANCER Sister(s) Family Medical History: Cancer, Diabetes Mellitus Additional Family Medical History / Comment(s): Breast cancer. General Exam General appearance: alert, in no apparent distress, anxious Head exam: Present: atraumatic, normocephalic, normal inspection Eye exam: Present: normal appearance, PERRL, EOMI. Absent: scleral icterus, conjunctival injection, periorbital swelling ENT exam: Present: normal exam, mucous membranes moist Neck exam: Present: normal inspection. Absent: tenderness, meningismus, lymphadenopathy Respiratory exam: Present: normal lung sounds bilaterally. Absent: respiratory distress, wheezes, rales, rhonchi, stridor Cardiovascular Exam: Present: regular rate, normal rhythm, normal heart sounds. Absent: systolic murmur, diastolic murmur, rubs, gallop, clicks GI/Abdominal exam: Present: soft, normal bowel sounds. Absent: distended, tenderness, guarding, rebound, rigid Extremities exam: Present: normal inspection, full ROM, normal capillary refill. Absent: tenderness, pedal edema, joint swelling, calf tenderness Back exam: Present: normal inspection Neurological exam: Present: alert, oriented X3, CN II-XII intact Psychiatric exam: Present: normal affect, normal mood Skin exam: Present: warm, dry, intact, normal color. Absent: rash Course Vital Signs 12/13/20 12/13/20 12/13/20 03:48 04:24 05:35 Temperature 97.2 F L Pulse Rate 87 81 81 Respiratory 18 18 18 Rate Blood Pressure 80/59 100/56 105/69 O2 Sat by Pulse 92 L 94 L 94 L Oximetry - Reevaluation(s) Reevaluation #1: Medical record is reviewed Symptoms improved with Theodore placement Patient informed of results and questions answered Medical Decision Making - Medical Decision Making 75 male to the severe urinary retention. Theodore is replaced this patient just had a removed. Patient will leave indwelling Theodore urine is negative and he can be discharged home - Lab Data Lab Results 12/13/20 Range/Units 04:33 Urine Color Yellow Urine Appearance Clear (Clear) Urine pH 5.0 (5.0-8.0) Ur Specific [place] 1.017 (1.001-1.035) Urine Protein 1+ H (Negative) Urine Glucose (UA) Negative (Negative) Urine Ketones Negative (Negative) Urine Blood Negative (Negative) Urine Nitrite Negative (Negative) Urine Bilirubin Negative (Negative) Urine Urobilinogen <2.0 (<2.0) mg/dL Ur Leukocyte Esterase Small H (Negative) Urine RBC 2 (0-5) /hpf Urine WBC 6 H (0-5) /hpf Ur Squamous Epith Cells <1 (0-4) /hpf Amorphous Sediment Rare H (None) /hpf Urine Bacteria Rare H (None) /hpf Hyaline Casts 38 H (0-2) /lpf Urine Mucus Occasional H (None) /hpf Disposition Clinical Impression: Urinary retention Disposition: HOME SELF-CARE Condition: Good Instructions (If sedation given, give patient instructions): Urinary Retention in Men (ED) Is patient prescribed a controlled substance at d/c from ED?: No Referrals: Zahra Henry MD [Primary Care Provider] - 1-2 days
[2020-12-13 03:57] VITALS: RESP 18; TEMP 97.2
[2020-12-13 04:24] VITALS: PULSE 81
[2020-12-13 05:01] LABS: Amorphous Sediment,Urine Rare /hpf; Appearance,Urine Clear (Clear); Bacteria,Urine Rare /hpf; Bilirubin,Urine Negative (Negative); Blood,Urine Negative (Negative); Color,Urine Yellow; Glucose,Urine (UA) Negative (Negative); Hyaline Casts,Urine 38 /lpf (0-2); Ketones,Urine Negative (Negative); Leukocyte Esterase,Urine Small (Negative); Mucus,Urine Occasional /hpf; Nitrite,Urine Negative (Negative); Protein,Urine 1+ (Negative); RBC,Urine 2 /hpf (0-5); Specific Gravity,Urine 1.017 (1.001-1.035); Squamous Epithelial Cell,Urine <1 /hpf (0-4); Urobilinogen,Urine <2.0 mg/dL (<2.0); WBC,Urine 6 /hpf (0-5)
[2020-12-13 05:36] VITALS: BP 105/69
== END 2020-12-13 06:02 | disposition home or self-care (01) ==
LOC: EC 03:44
DX: R33.9 Retention of urine, unspecified (principal); E11.9 Type 2 diabetes mellitus without complications; F41.9 Anxiety disorder, unspecified; I10 Essential (primary) hypertension; I48.91 Unspecified atrial fibrillation; Z79.84 Long term (current) use of oral hypoglycemic drugs; Z95.0 Presence of cardiac pacemaker; Z87.891 Personal history of nicotine dependence
CPT/HCPCS: 81001; 99284